=== PATIENT | male | born 1940 | race Caucasian/White ===

== ENCOUNTER → 2016-10-15 | Outpatient (CLI) | payer OTHER ==
[2015-07-17 13:08] VITALS: BP 128/89
[~2016-10-15] MED LIST: APIX5TAB PO; ASPI-482 PO; HYDR-965 PO; LOSA1TAB17 PO; METO25TA2 PO; OLME1TAB5 PO; OMEG500C3 PO; VITA10004 PO
--- NOTE | 2016-10-15 09:51 | KCIC ---
Bilateral lower extremity venous Doppler ultrasound History: Bilateral lower extremity edema. History of DVT 2014. Patient on blood thinner for atrial fibrillation. Comparison: None. Procedure: Color flow Doppler, Doppler spectral analysis, and 2D images are obtained with and without compression in the area of the common femoral vein, superficial femoral vein - femoral vein junction, main femoral vein (superficial femoral vein) and popliteal vein. Veins of the proximal calf are also imaged. Findings: There is minimal eccentric thrombus in the right popliteal vein. Color flow and augmentation are demonstrated. There is partial thrombus in the right posterior tibial vein. Peroneal veins are not seen bilaterally. There is normal color flow, augmentation, and compressibility of all other visualized vein segments. No evidence of deep venous thrombus is present. Right Green's cyst measures 3.6 x 1.5 x 3.5 cm. Left Green's cyst measures 3.6 x 1.5 x 3.3 cm. IMPRESSION: 1. Partially occlusive chronic appearing thrombus of the right popliteal and posterior tibial veins. 2. Peroneal veins are not identified bilaterally. 3. Bilateral Green's cysts. Electronically signed by: Terry Patel MD (10/15/2016 9:48 AM)
--- NOTE | 2016-10-15 10:38 | KCIC ---
VENOUS REFLUX BILATERAL Clinical Indication: Edema, foot pain. Comparison: None. TECHNIQUE: Real-time grayscale, color-flow, and Doppler spectral waveform analysis of the superficial veins of the lower extremities is performed with and without patient performing Valsalva maneuver. Findings: No reflux is demonstrated in the right or left greater saphenous veins. Diameter at the left saphenofemoral junction is 7 mm. Lesser saphenous vein diameter is 3 mm. Diameter at the right saphenofemoral junction is 6 mm. The right lesser saphenous vein diameter is 4 mm. No reflux is seen in the lesser saphenous veins. No calf perforators are demonstrated. IMPRESSION: No venous reflux is demonstrated. Electronically signed by: Terry Patel MD (10/15/2016 10:35 AM)
== END | disposition home or self-care (01) ==
LOC: KCIC US 07:42
PROVIDERS: ATTEND Family Medicine
DX: M79.672 Pain in left foot (principal); M79.671 Pain in right foot; R60.0 Localized edema
CPT/HCPCS: 93970

== ENCOUNTER → 2016-10-29 | Outpatient (CLI) | payer OTHER ==
[2015-07-17 13:08] VITALS: BP 128/89
[~2016-10-29] MED LIST changes: +OLME1TAB25 PO; -OLME1TAB5 PO; +VITA100022 PO; -VITA10004 PO
--- NOTE | 2016-10-29 09:15 | CARD ---
APPROVED REPORT EXAM: Two-dimensional and M-mode echocardiogram with Doppler and color Doppler. Other Information Quality : GoodHR: 67bpm Rhythm : NSR INDICATION Edema RISK FACTORS Hypertension 2D DIMENSIONS RVDd3.3 (2.9-3.5cm)Left Atrium(2D)3.4 (1.6-4.0cm) IVSd0.9 (0.7-1.1cm)Aortic Root(2D)3.2 (2.0-3.7cm) LVDd5.4 (3.9-5.9cm)LVOT Diameter2.2 (1.8-2.4cm) PWd0.9 (0.7-1.1cm)LVDs3.6 (2.5-4.0cm) FS (%) 33.3 %SV88.1 ml LVEF(%)61.5 (>50%) Aortic Valve AoV Peak Garrett.117.5cm/sAoV VTI20.6cm AO Peak GR.5.5mmHgLVOT Peak Garrett.85.1cm/s AO Mean GR.4mmHgAVA (VMAX)2.66cm2 Mitral Valve MV E Mjamezax71.2cm/sMV E Peak Gr.1mmHg MV DECEL DHBL520olVE A Fkvhrvol98.3cm/s MV E Mean Gr.0mmHgE/A Ratio1.1 MV A [id number] Pulmonary Valve PV Peak Hkbvrkap51.4cm/s Tricuspid Valve TR P. Gnlaaxeg159ux/sTR Peak Gr.26mmHg Pulmonary Vein S1 Ymyxzian74.9cm/sD2 Puqvccab61.5cm/s PVa dimkrlzp95aoav LEFT VENTRICLE The left ventricle is normal size. There is normal left ventricular wall thickness. The left ventricu lar systolic function is normal and the ejection fraction is within normal range. The Ejection Fracti on is 60-65%. There is normal LV segmental wall motion. RIGHT VENTRICLE The right ventricle is normal size. There is normal right ventricular wall thickness. The right ventr icular systolic function is normal. ATRIA The left atrium size is normal. The right atrium size is normal. The interatrial septum is intact wit h no evidence for an atrial septal defect or patent foramen ovale as noted on 2-D or Doppler imaging. AORTIC VALVE The aortic valve is mildly sclerotic. The aortic valve is trileaflet. Doppler and Color Flow revealed no significant aortic regurgitation. There is no significant aortic valvular stenosis. MITRAL VALVE The mitral valve leaflets are thickened. There is no evidence of mitral valve prolapse. There is no m itral valve stenosis. Doppler and Color Flow revealed mild mitral regurgitation. TRICUSPID VALVE Doppler and Color Flow revealed trace tricuspid regurgitation. The pulmonary artery systolic pressure is estimated at 29 mmHg. PULMONIC VALVE Doppler and Color Flow revealed no pulmonic valvular regurgitation. There is no pulmonic valvular jan nosis. GREAT VESSELS The aortic root is normal in size. The ascending aorta is normal in size. The pulmonary artery is nor mal. The IVC is normal in size and collapses >50% with inspiration. PERICARDIAL EFFUSION There is no evidence of significant pericardial effusion. Critical Notification Critical Value: No <Conclusion> The left ventricular systolic function is normal and the ejection fraction is within normal range. T he Ejection Fraction is 60-65%. There is normal LV segmental wall motion.
== END | disposition home or self-care (01) ==
LOC: ECHO 07:42
PROVIDERS: ATTEND Internal Medicine Cardiovascular Disease
DX: I08.1 Rheumatic disorders of both mitral and tricuspid valves (principal); R06.00 Dyspnea, unspecified
CPT/HCPCS: 93306

== ENCOUNTER 2021-01-17 11:48 | Inpatient (IN) | payer MEDICARE, OTHER ==
[~2021-01-17] VITALS: Ht 195.6 cm; Wt 105.9 kg
[~2021-01-17 11:48] MED LIST changes: +HYDR-3165 PO; -HYDR-965 PO; -LOSA1TAB17 PO; +LOSA1TAB22 PO
[2021-01-17] MEDS ORDERED: MULTIVIT INFUSN,ADULT 4,VIT K 10 ML, THIAMINE INJ 100 MG, FOLIC ACID INJ 1 MG in IV NOR... IV ONE (12:00)
--- NOTE | 2021-01-17 12:13 | RAD ---
EXAM: XR CHEST 1V 01/17/2021 12:01 PM CLINICAL INDICATION: Weakness COMPARISON: Chest radiograph 10/11/2014 TECHNIQUE: AP upright view of the chest FINDINGS: The heart and mediastinum are normal. Lungs are well-expanded. There is minimal atelectas is in the left lung base. There is a skinfold seen over the left hemithorax. No consolidation, pleura l effusion, or pneumothorax. Pulmonary vascularity is normal. No acute osseous abnormality. IMPRESSION: No acute cardiopulmonary abnormality. Electronically signed by: Desiree Zhou MD (01/17/2021 12:11 PM) [id number]
[2021-01-17] MEDS ORDERED: FAMOTIDINE 20 MG/2 ML VIAL IVP ONE (12:30)
[2021-01-17] MEDS ORDERED: ONDANSETRON PF 4 MG/2 ML VIAL. IVP ONE ×2 (12:30→15:00)
--- NOTE | 2021-01-17 12:30 | PHYS DOC ---
Past Medical History Past Medical History: A-Fib, Hypertension Past Surgical History: No Surgical History Smoking Status: Never Smoker Alcohol Use: Heavy Additional Information: 3x "scotch on rocks" nightly Drug Use: None General Adult EDM: Chief Complaint: NAUSEA/VOMITING/DIARRHEA HPI: HPI: Patient is a 80-year-old male presents via EMS with 2-week history of progressive weakness primarily to his lower extremities. Reports now with nausea and vomiting today. Patient reports he has difficulty moving at this point. Reports he has fallen. Denies head trauma or neck pain. Denies fever or chills. Denies cough. Denies known exposure to COVID-19. Denies known sick contacts. Patient reports receiving vaccinations x2 in August 2020. Patient is unsure whether it is Pfizer or Moderna. Patient reports use of blood thinners. Patient does report drinking 3 scotches nightly. Patient reports he has not been eating recently. Review of Systems: Review of Systems: Constitutional: Denies fever or chills; reports malaise Eyes: Denies redness or eye pain HENT: Denies nasal congestion or sore throat Respiratory: Denies cough or shortness of breath Cardiovascular: Denies chest pain or palpitations GI: Denies abdominal pain; reports nausea and vomiting : Denies dysuria or hematuria Musculoskeletal: Denies back pain or joint pain Integument: Denies rash or skin lesions Neurologic: Denies headache; reports generalized weakness and decreased sensation on left leg Complete systems were reviewed and found to be within normal limits, except as documented in this note. Heart Score: C/O Chest Pain: N/A Current Medications: Current Medications Medications (Trade) Dose Ordered Sig/[facility] Start Time Stop Time Status Last Admin Dose Admin Famotidine (Pepcid Vial) 20 mg 1X ONCE 01/17/21 12:30 01/17/21 12:31 01/17/21 12:27 20 MG Multivitamins 10 ml/Thiamine HCl 100 mg/Folic Acid 1 mg/Sodium Chloride 1,011.2 ml @ 1,000.088 mls/hr 1X ONCE 01/17/21 12:00 01/17/21 13:00 01/17/21 12:27 1,000.088 MLS/HR Ondansetron HCl (Zofran) 4 mg 1X ONCE 01/17/21 12:30 01/17/21 12:31 01/17/21 12:27 4 MG Allergies: Allergies: Allergies Coded Allergies Type Severity Reaction Last Updated Verified No Known Drug Allergies 07/17/15 No Physical Exam: PE: Constitutional: Well developed, well nourished, no acute distress, non-toxic appearance HENT: Normocephalic, atraumatic Eyes: PERRL, EOMI, conjunctiva normal, no discharge, no nystagmus Neck: Normal range of motion, no tenderness, supple Lungs & Thorax: No respiratory distress, equal chest rise and fall Abdomen: Soft, no tenderness, no guarding/rebound tenderness/distention Skin: Warm, dry, no erythema, bilateral lower extremities with chronic venous stasis Extremities: No tenderness, ROM intact, 2+ bilateral lower extremity edema Neurologic: Alert and oriented X 3, bilateral lower extremities strength +4, patient reports decreased sensation on distal left leg in comparison to right Psychologic: Affect normal, judgment normal EKG: EKG: @1303 Sinus arrhythmia with baseline artifaact noted, low limb lead voltage, NO ST elevation, QRS 96ms, QT/QTc 368/460ms Radiology/Procedures: Radiology/Procedures: PROCEDURE: PORTABLE CHEST 1V EXAM: XR CHEST 1V 01/17/2021 12:01 PM CLINICAL INDICATION: Weakness COMPARISON: Chest radiograph 10/11/2014 TECHNIQUE: AP upright view of the chest FINDINGS: The heart and mediastinum are normal. Lungs are well-expanded. There is minimal atelectasis in the left lung base. There is a skinfold seen over the left hemithorax. No consolidation, pleural effusion, or pneumothorax. Pulmonary vascularity is normal. No acute osseous abnormality. IMPRESSION: No acute cardiopulmonary abnormality. Electronically signed by: Desiree Zhou MD (01/17/2021 12:11 PM) [id number] PROCEDURE: CT HEAD WO CONTRAST CT Head without contrast 01/17/2021 12:04 PM Indication: Reason: weakness / Spl. Instructions: / History: Comparison: None available Findings: No intracranial hemorrhage is seen. No evidence of acute territorial infarct is seen. Note that CT is limited in sensitivity for acute ischemia. MRI offers more sensitive evaluation. Age-related atrophic changes are noted. There is prominent patchy periventricular and deep white matter hypoattenuation which is nonspecific, but most commonly relates to chronic small vessel disease. No abnormal extra axial fluid collection is identified. No mass effect or midline shift is seen. No acute osseous abnormalities are seen. Impression: 1. No acute intracranial process identified 2. Age-related atrophy, and evidence of chronic small vessel disease as described CT DOSING PQRS STATEMENT: One or more of the following individualized dose reduction techniques were utilized for this examination: 1. Automated exposure control 2. Adjustment of the mA and/or kV according to patient size 3. Use of iterative reconstruction technique Electronically signed by: Topher Anglin MD (01/17/2021 12:57 PM) [id number] Course & Med Decision Making: Course & Med Decision Making Pertinent Labs and Imaging studies reviewed. (See chart for details) Patient presents with report of generalized weakness primarily to his lower e xtremities. Patient also noted to have decreased sensation in left leg in comparison to right. Patient denies known history of CVA however he reports his spouse thinks he might have had a stroke in the past. Patient does report recent fall. Patient is on blood thinners. Patient otherwise neurologically intact. NIHSS 3 secondary to bilateral lower extremity weakness as well as sensation difference. CT head without acute process. Labs obtained and posted to chart. Leukocytosis appreciated. Lactic acid obtained and significantly elevated. Chest x-ray clear. Concern for possible urinary tract infection however patient unable to provide urine sample at this time. Given septic shock criteria being met empiric antibiotics and IV fluid hydration provided. Other labs reviewed and noted patient to be hypoglycemic. D10 provided and patient allowed to eat. Hypokalemia and hypomagnesemia addressed. Patient requiring admission for further evaluation and treatment. Discussed with Dr. Lopez (hospitalist) who is in agreement with admission. Discussed findings and plan with patient, who acknowledges understanding and agreement. Robin Disclaimer: Robin Disclaimer: This electronic medical record was generated, in whole or in part, using a voice recognition dictation system. Departure Departure Impression: Primary Impression: Septic shock Additional Impressions: Generalized weakness Hypoglycemia Hypomagnesemia Hypokalemia Disposition: ADMITTED INPATIENT Admitting Physician: MISBAH (John) Condition: GUARDED Referrals: JEOVANNY MINOR MD (PCP) NIHSS Stroke Scale NIH Stroke Scale: NIH Stroke Scale Response (Comments) Value Level of Consciousness: 0 Alert/Responsive 0 LOC Questions: 0 Answers both correctly 0 LOC Commands: 0 Performs both tasks 0 Best Gaze: 0 Normal 0 Visual: 0 No visual loss 0 Facial Palsy: 0 Normal, symmetrical 0 Motor - Left Arm 0 No drift 0 Motor - Right Arm 0 No drift 0 Motor - Left Leg 1 Drift but can hold 1 Motor: Right Leg 1 Drift but can hold 1 Limb Ataxia: 0 Absent 0 Sensory: 1 Mid to moderate loss 1 Best Language: 0 Normal 0 Dysathria: 0 Normal 0 Extinction and Inattention: 0 Normal 0 Total 3 Date and Time of Reassessment Date: Jan 17, 2021 Time: 14:23 Fluid Challenge Is the fluid challenge complet: No IBW Target Volume Used: Yes BMI > 30: Yes Vital Signs Vital Signs: Vital Signs Date Time Temp Pulse Resp B/P (MAP) Pulse Ox O2 Delivery O2 Flow Rate FiO2 01/17/21 11:48 97.2 100 22 123/82 (96) 98 Room Air 97.2 Temperature Source: Oral Respirations Respiratory Effort: Normal Respiratory Pattern: Normal Cardiovascular Pulse Rhythm: Irregular Heart: S1 and S2 normal Lung Sounds Breath Sounds: Coarse Capillary Refil Capillary Refill: Rt Hand < 3 seconds Peripheral Pulse Pulse Location: Radial Pulse Strength: Normal (2+) Pulse Assessment Method: Palpation Integumentary Skin: Warm, Dry Skin Moisture: Dry Skin Turgor: Normal Skin Color: warm, dry Fingernail Color: WNL Critical Care Time Critical care time was 30 minutes which includes time at bedside, spent in discussion of patient's care with specialists and/or family members, with interpretation of laboratory and/or radiological studies and is exclusive of procedures. ASHOK ANGUIANO DO Jan 17, 2021 12:30
--- NOTE | 2021-01-17 12:59 | RAD ---
CT Head without contrast 01/17/2021 12:04 PM Indication: Reason: weakness / Spl. Instructions: / History: Comparison: None available Findings: No intracranial hemorrhage is seen. No evidence of acute territorial infarct is seen. Note that CT is limited in sensitivity for acute ischemia. MRI offers more sensitive evaluation. Age-relat ed atrophic changes are noted. There is prominent patchy periventricular and deep white matter hypoa ttenuation which is nonspecific, but most commonly relates to chronic small vessel disease. No abnor mal extra axial fluid collection is identified. No mass effect or midline shift is seen. No acute os seous abnormalities are seen. Impression: 1. No acute intracranial process identified 2. Age-related atrophy, and evidence of chronic small vessel disease as described CT DOSING PQRS STATEMENT: One or more of the following individualized dose reduction techniques were utilized for this examinat ion: 1. Automated exposure control 2. Adjustment of the mA and/or kV according to patient size 3. Use of iterative reconstruction technique Electronically signed by: Topher Anglin MD (01/17/2021 12:57 PM) [id number]
[2021-01-17 13:14] LABS: BASO # 0.1 x10^3/uL (0.0-0.2); BASO % 0 % (0-3); EOS % 0 % (0-3); HEMATOCRIT 35.9 % (39.0-53.0); HEMOGLOBIN 12.2 g/dL (13.0-17.5); LYMPH # 0.7 x10^3/uL (1.0-4.8); LYMPH % 4 % (24-48); MEAN CORPUSCULAR HEMOGLOBIN 38 pg (25-35); MEAN CORPUSCULAR HGB CONC 34 g/dL (31-37); MEAN CORPUSCULAR VOLUME 112 fL (79-100); MONO % 6 % (0-9); NEUT # 17.2 x10^3/uL (1.8-7.7); NEUT % 90 % (31-73); PLATELET COUNT 243 x10^3/uL (140-400); RED BLOOD COUNT 3.21 x10^6/uL (4.30-5.70); RED CELL DISTRIBUTION WIDTH 15.2 % (11.5-14.5)
[2021-01-17 13:48] LABS: GFR 72.3; POTASSIUM 3.3 mmol/L (3.5-5.1)
[2021-01-17 13:56] LABS: ALBUMIN 2.8 g/dL (3.4-5.0); ALBUMIN/GLOBULIN RATIO 0.7 (1.0-1.7); MAGNESIUM 1.5 mg/dL (1.8-2.4); TOTAL BILIRUBIN 1.1 mg/dL (0.2-1.0); TOTAL PROTEIN 6.6 g/dL (6.4-8.2)
[2021-01-17 14:14] LABS: % BANDS 7 % (0-9); % LYMPHS 4 % (24-48); % MONOS 3 % (0-10); % SEGS 86 % (35-66); ANISOCYTOSIS SLIGHT; PLT ESTIMATE ADEQUATE (ADEQUATE)
[2021-01-17 14:15] LABS: OVALOCYTES FEW
[2021-01-17] MEDS ORDERED: IV NORMAL SALINE 1000ML BAG 1,000 ML IV ONE (14:15)
[2021-01-17] MEDS ORDERED: IV NORMAL SALINE 500ML BAG 500 ML IV ONE (14:15)
[2021-01-17] MEDS ORDERED: IV DEXTROSE 10% 500 ML IV ONE (14:15)
[2021-01-17] MEDS ORDERED: DEXTROSE 50% 25 GM / 50ML DISP.SYRIN. IV ONE (14:30)
[2021-01-17] MEDS ORDERED: MAGNESIUM SULFATE 2GM 50 ML IV ONE (14:30)
[2021-01-17] MEDS ORDERED: ACETAMINOPHEN 325 MG TABLET. PO PRN (14:30)
[2021-01-17] MEDS ORDERED: POTASSIUM CHLORIDE 20 MEQ TABLET.ER. PO ONE (14:30)
[2021-01-17] MEDS ORDERED: cefTRIAXone IV Push 1 GM VIAL. IVP ONE (14:30)
[2021-01-17] MEDS ORDERED: ONDANSETRON PF 4 MG/2 ML VIAL. IVP PRN (14:30)
--- NOTE | 2021-01-17 15:10 | PDOC1 ---
History and Physical Date of Service: DOS: DATE: 01/17/21 TIME: 15:10 Chief Complaint: Problems: (1) Generalized weakness (2) Hypomagnesemia (3) Hypokalemia (4) Hypoglycemia (5) Septic shock Chief Complain: Nausea vomiting, lower extremity weakness History of Present Illness: HPI: Patient 80-year-old male who presented to the hospital today due to 2-week history of bilateral lower extremity weakness and nausea and vomiting. Patient reports he has had progressive weakness in his lower extremities to the point where he is unable to even stand up now. Feels very weak all over. Cannot recall any episodes like this before. He also has developed in the past week nausea and vomiting with meals. Decreased p.o. intake because of this. In the emergency room patient met SIRS criteria particularly due to lactate of 5. Patient does not know of any Covid contacts he knows of, he does have his Covid vaccines. Infectious work-up unremarkable thus far however patient has not been able to provide a urine sample thus suspect is a UTI. Denies hematuria and dysuria. Says that for the past few weeks when he has to urinate in the middle of the night he is too weak to get up to get to the bathroom so he just pees himself. Patient is a pretty heavy alcoholic, 3-4 scotches a night. When seen patient was denying headache, vision changes, chest pain, dysuria. Of note patient reports that about 1 year ago he had an episode of MS-like symptoms that are somewhat similar to this. Says they went away on their own thus he never pursued any sort of work-up. Past Medical/Surgical History: PMH/PSH: Hypertension, A. fib Allergies: Allergies: Coded Allergies: No Known Drug Allergies (Unverified , 07/17/15) Family History: Family History: No known Social History: Social History: 3-4 scotches a night, denies tobacco drug use Current Medications: Current Medications Current Medications Famotidine (Pepcid Vial) 20 mg 1X ONCE IVP Last administered on 01/17/21at 12:27; Start 01/17/21 at 12:30; Stop 01/17/21 at 12:31; Status DC Ondansetron HCl (Zofran) 4 mg 1X ONCE IVP Last administered on 01/17/21at 12:27; Start 01/17/21 at 12:30; Stop 01/17/21 at 12:31; Status DC Multivitamins 10 ml/Thiamine HCl 100 mg/Folic Acid 1 mg/Sodium Chloride 1,011.2 ml @ 1,000.088 mls/hr 1X ONCE IV Last administered on 01/17/21at 12:27; Start 01/17/21 at 12:00; Stop 01/17/21 at 13:00; Status DC Ceftriaxone Sodium (Rocephin) 1 gm 1X ONCE IVP Last administered on 01/17/21at 14:35; Start 01/17/21 at 14:30; Stop 01/17/21 at 14:31; Status DC Dextrose (Dextrose 50%-Water Syringe) 25 gm 1X ONCE IV ; Start 01/17/21 at 14:30; Stop 01/17/21 at 14:11; Status DC Potassium Chloride (Klor-Con) 40 meq 1X ONCE PO Last administered on 01/17/21at 14:36; Start 01/17/21 at 14:30; Stop 01/17/21 at 14:31; Status DC Magnesium Sulfate 50 ml @ 25 mls/hr 1X ONCE IV Last administered on 01/17/21at 14:35; Start 01/17/21 at 14:30; Stop 01/17/21 at 16:29 Multivitamins 10 ml/Thiamine HCl 100 mg/Folic Acid 1 mg/Sodium Chloride 1,011.2 ml @ 100 mls/ hr DAILY IV ; Start 01/18/21 at 09:00; Stop 01/21/21 at 19:07 Multivitamins (Thera M Plus) 1 tab DAILY PO ; Start 01/22/21 at 09:00 Thiamine Mononitrate (Vitamin B-1) 100 mg DAILY PO ; Start 01/22/21 at 09:00 Lorazepam (Ativan) 4 mg PRN Q1HR PRN PO For CIWA 8-14; Start 01/17/21 at 14:15 Lorazepam (Ativan) 8 mg PRN Q1HR PRN PO For CIWA 15 or greater; Start 01/17/21 at 14:15 Dextrose 500 ml @ 0 mls/hr 1X ONCE IV ; Start 01/17/21 at 14:15; Stop 01/17/21 at 14:43; Status DC Aspirin (Ecotrin) 81 mg DAILY PO ; Start 01/17/21 at 15:00 Metoprolol Succinate (Toprol Xl) 12.5 mg DAILY PO ; Start 01/17/21 at 15:00 Losartan Potassium (Cozaar) 100 mg DAILY PO ; Start 01/17/21 at 15:00 Sodium Chloride 1,000 ml @ 1,000 mls/hr 1X ONCE IV Last administered on 1at 14:35; Start 01/17/21 at 14:15; Stop 01/17/21 at 15:14 Sodium Chloride 500 ml @ 500 mls/hr 1X ONCE IV Last administered on 01/17/21at 14:34; Start 01/17/21 at 14:15; Stop 01/17/21 at 15:14 Ondansetron HCl (Zofran) 4 mg PRN Q8HRS PRN IVP NAUSEA/VOMITING; Start 01/17/21 at 14:30; Stop 01/18/21 at 14:29 Acetaminophen (Tylenol) 650 mg PRN Q4HRS PRN PO FEVER > 100.3'F; Start 01/17/21 at 14:30; Stop 01/18/21 at 14:29 Apixaban (Eliquis) 5 mg BID PO ; Start 01/17/21 at 21:00 Hydrochlorothiazide (Hydrodiuril) 25 mg DAILY PO ; Start 01/17/21 at 15:00 Info (Anti-Coagulation Monitoring By Pharmacy) 1 each PRN DAILY PRN MC PER PROTOCOL; Start 01/17/21 at 15:00 Ondansetron HCl (Zofran) 4 mg 1X ONCE IVP ; Start 01/17/21 at 15:00; Stop 01/17/21 at 15:04; Status DC Active Scripts Active Reported Losartan-Hctz 100-25 Mg Tab (Losartan/Hydrochlorothiazide) 1 Each Tablet 1 Each PO DAILY Toprol Xl (Metoprolol Succinate) 25 Mg Tab.er.24h 12.5 Mg PO DAILY Eliquis (Apixaban) 5 Mg Tablet 5 Mg PO BID Aspir 81 (Aspirin) 81 Mg Tablet.dr 1 Tab PO DAILY Vitamin E (Vitamin E Acetate) 1,000 Unit Capsule 1 Tab PO Fish Oil (Matthews-3 Fatty Acids) 500 Mg Capsule 500 Mg PO DAILY ROS: Review of Systems Review of System Negative unless noted in HPI Physical Exam: Vital Signs: Vital Signs Date Time Temp Pulse Resp B/P (MAP) Pulse Ox O2 Delivery O2 Flow Rate FiO2 01/17/21 14:26 93 18 166/95 (118) 100 Room Air 01/17/21 11:48 97.2 97.2 Physcial Exam: GEN: Patient very lethargic, very weak, HEENT: Normal cephalic, atraumatic, external auditory canals are patent EYES: Extraocular muscles are intact, pupil are equally round and reactive to light and accommodation MUSCULOSKELETAL: Range of motion limited by weakness NECK: Supple, no JVD, no thyromegaly was noted LUNGS: Clear to auscultation in all lung [place] without rhonchi or wheezing HEART: Irregularly irregular; peripheral pulses normal ABDOMEN: Diffusely tender throughout EXTREMITIES: Bilateral lower extremities appear very unkempt especially his feet. No history of diabetes. NEUROLOGIC: Normal speech and tone. A&O x 3, moves all extremities, no obvious focal deficits PSYCHIATRIC: Lethargic SKIN: No ulcerations or rashes, good skin turgor, no jaundice VASCULAR: Good capillary refill, neurovascular bundle appears to be intact Labs: Labs: Laboratory Tests Test 01/17/21 12:05 01/17/21 12:28 01/17/21 13:02 SARS-CoV-2 Antigen (Rapid) Negative (NEGATIVE) Prothrombin Time 15.0 SEC (11.7-14.0) Prothromb Time International Ratio 1.2 (0.8-1.1) Activated Partial Thromboplast Time 27 SEC (24-38) White Blood Count 19.0 x10^3/uL (4.0-11.0) Red Blood Count 3.21 x10^6/uL (4.30-5.70) Hemoglobin 12.2 g/dL (13.0-17.5) Hematocrit 35.9 % (39.0-53.0) Mean Corpuscular Volume 112 fL (79-100) Mean Corpuscular Hemoglobin 38 pg (25-35) Mean Corpuscular Hemoglobin Concent 34 g/dL (31-37) Red Cell Distribution Width 15.2 % (11.5-14.5) Platelet Count 243 x10^3/uL (140-400) Neutrophils (%) (Auto) 90 % (31-73) Lymphocytes (%) (Auto) 4 % (24-48) Monocytes (%) (Auto) 6 % (0-9) Eosinophils (%) (Auto) 0 % (0-3) Basophils (%) (Auto) 0 % (0-3) Neutrophils # (Auto) 17.2 x10^3/uL (1.8-7.7) Lymphocytes # (Auto) 0.7 x10^3/uL (1.0-4.8) Monocytes # (Auto) 1.0 x10^3/uL (0.0-1.1) Eosinophils # (Auto) 0.0 x10^3/uL (0.0-0.7) Basophils # (Auto) 0.1 x10^3/uL (0.0-0.2) Segmented Neutrophils % 86 % (35-66) Band Neutrophils % 7 % (0-9) Lymphocytes % 4 % (24-48) Monocytes % 3 % (0-10) Platelet Estimate Adequate (ADEQUATE) Anisocytosis Slight Macrocytosis Mod Ovalocytes Few Sodium Level 138 mmol/L (136-145) Potassium Level 3.3 mmol/L (3.5-5.1) Chloride Level 97 mmol/L (98-107) Carbon Dioxide Level 13 mmol/L (21-32) Anion Gap 28 (6-14) Blood Urea Nitrogen 20 mg/dL (8-26) Creatinine 1.0 mg/dL (0.7-1.3) Estimated GFR (Cockcroft-Gault) 72.3 BUN/Creatinine Ratio 20 (6-20) Glucose Level 64 mg/dL (70-99) Lactic Acid Level 5.7 mmol/L (0.4-2.0) Calcium Level 8.0 mg/dL (8.5-10.1) Magnesium Level 1.5 mg/dL (1.8-2.4) Total Bilirubin 1.1 mg/dL (0.2-1.0) Aspartate Amino Transf (AST/SGOT) 72 U/L (15-37) Alanine Aminotransferase (ALT/SGPT) 44 U/L (16-63) Alkaline Phosphatase 76 U/L (46-116) Ammonia < 10 mcmol/L (11-34) Creatine Kinase 616 U/L (39-308) Creatine Kinase MB (Mass) 9.9 ng/mL (0.0-3.6) Creatine Kinase MB Relative Index 1.6 % (0-4) Troponin I Quantitative < 0.017 ng/mL (0.000-0.055) UE-[id number]-[id number]-Type Natriuretic Peptide 1952 pg/mL (0-449) Total Protein 6.6 g/dL (6.4-8.2) Albumin 2.8 g/dL (3.4-5.0) Albumin/Globulin Ratio 0.7 (1.0-1.7) Ethyl Alcohol Level 40 mg/dL (0-10) Laboratory Tests Test 01/17/21 12:05 01/17/21 12:28 01/17/21 13:02 SARS-CoV-2 Antigen (Rapid) Negative (NEGATIVE) Prothrombin Time 15.0 SEC (11.7-14.0) Prothromb Time International Ratio 1.2 (0.8-1.1) Activated Partial Thromboplast Time 27 SEC (24-38) White Blood Count 19.0 x10^3/uL (4.0-11.0) Red Blood Count 3.21 x10^6/uL (4.30-5.70) Hemoglobin 12.2 g/dL (13.0-17.5) Hematocrit 35.9 % (39.0-53.0) Mean Corpuscular Volume 112 fL (79-100) Mean Corpuscular Hemoglobin 38 pg (25-35) Mean Corpuscular Hemoglobin Concent 34 g/dL (31-37) Red Cell Distribution Width 15.2 % (11.5-14.5) Platelet Count 243 x10^3/uL (140-400) Neutrophils (%) (Auto) 90 % (31-73) Lymphocytes (%) (Auto) 4 % (24-48) Monocytes (%) (Auto) 6 % (0-9) Eosinophils (%) (Auto) 0 % (0-3) Basophils (%) (Auto) 0 % (0-3) Neutrophils # (Auto) 17.2 x10^3/uL (1.8-7.7) Lymphocytes # (Auto) 0.7 x10^3/uL (1.0-4.8) Monocytes # (Auto) 1.0 x10^3/uL (0.0-1.1) Eosinophils # (Auto) 0.0 x10^3/uL (0.0-0.7) Basophils # (Auto) 0.1 x10^3/uL (0.0-0.2) Segmented Neutrophils % 86 % (35-66) Band Neutrophils % 7 % (0-9) Lymphocytes % 4 % (24-48) Monocytes % 3 % (0-10) Platelet Estimate Adequate (ADEQUATE) Anisocytosis Slight Macrocytosis Mod Ovalocytes Few Sodium Level 138 mmol/L (136-145) Potassium Level 3.3 mmol/L (3.5-5.1) Chloride Level 97 mmol/L (98-107) Carbon Dioxide Level 13 mmol/L (21-32) Anion Gap 28 (6-14) Blood Urea Nitrogen 20 mg/dL (8-26) Creatinine 1.0 mg/dL (0.7-1.3) Estimated GFR (Cockcroft-Gault) 72.3 BUN/Creatinine Ratio 20 (6-20) Glucose Level 64 mg/dL (70-99) Lactic Acid Level 5.7 mmol/L (0.4-2.0) Calcium Level 8.0 mg/dL (8.5-10.1) Magnesium Level 1.5 mg/dL (1.8-2.4) Total Bilirubin 1.1 mg/dL (0.2-1.0) Aspartate Amino Transf (AST/SGOT) 72 U/L (15-37) Alanine Aminotransferase (ALT/SGPT) 44 U/L (16-63) Alkaline Phosphatase 76 U/L (46-116) Ammonia < 10 mcmol/L (11-34) Creatine Kinase 616 U/L (39-308) Creatine Kinase MB (Mass) 9.9 ng/mL (0.0-3.6) Creatine Kinase MB Relative Index 1.6 % (0-4) Troponin I Quantitative < 0.017 ng/mL (0.000-0.055) NP-Wmm-F-Type Natriuretic Peptide 1952 pg/mL (0-449) Total Protein 6.6 g/dL (6.4-8.2) Albumin 2.8 g/dL (3.4-5.0) Albumin/Globulin Ratio 0.7 (1.0-1.7) Ethyl Alcohol Level 40 mg/dL (0-10) Assessment/Plan Assessment/Plan Generalized weakness, failure to thrive, suspected UTI, septic shock, hyper tension, A. fib, macrocytic anemia -2-week history worsening lower extremity weakness. Decreased p.o. intake as well. -Denies any inciting events - emergency room patient was provided fluids and electrolyte replacement; also found to have a leukocytosis, afebrile -CT head and C-spine unremarkable; chest x-ray unremarkable -Lactate of 5 -Given a dose of Rocephin in the emergency room, will continue this for now until patient can provide urine sample -Continue aggressive hydration as suspect dehydration is a large contributing factor to patient's presentation -Nutrition consult -PT OT ordered -CIWA protocol ordered -We will check B12 and folate due to macrocytic anemia; will also give empiric doses of each -Home Eliquis will serve as DVT prophylaxis -Resumed as indicated -Diet as tolerated Justifications for Admission Other Justification SHANNAN MACHADO MD Jan 17, 2021 15:10
[2021-01-17 16:20] VITALS: BP 148/77
[2021-01-17 18:02] LABS: BILIRUBIN,URINE SMALL (NEG); CLARITY,URINE CLOUDY; COLOR,URINE AMBER; NITRITE,URINE NEGATIVE (NEG); PROTEIN,URINE 30 mg/dL (NEG-TRACE)
[2021-01-17 18:07] LABS: BACTERIA,URINE 0 /HPF (0-FEW); HYALINE CASTS, URINE OCCASIONAL /HPF; WBC,URINE OCC /HPF (0-4)
[2021-01-17] MEDS: IV NORMAL SALINE 1000ML BAG 1,000 ML IV SCH (18:15)
[2021-01-17 18:18] VITALS: BP 151/71
[2021-01-17] MEDS: NYSTATIN TOPICAL POWDER 15GM BOTTLE. TP SCH (20:17)
[2021-01-17] MEDS: ZOLPIDEM 5 MG TABLET. PO PRN (20:17)
[2021-01-17] MEDS: hydroCHLOROthiazide 25 MG TABLET PO SCH (20:18)
[2021-01-17] MEDS: ASPIRIN ENTERIC COATED 81 MG TABLET.DR. PO SCH (20:18)
[2021-01-17] MEDS: VITAMIN B12,B9,B6 COMPLEX 1 TABLET. PO SCH (20:18)
[2021-01-17] MEDS: APIXABAN 5 MG TABLET. PO SCH (20:18)
[2021-01-17] MEDS: METOPROLOL SUCC 24HR ER 25 MG TAB.ER.24H. PO SCH (20:19)
[2021-01-17] MEDS: LOSARTAN POTASSIUM 50 MG TABLET. PO SCH (20:19)
--- NOTE | 2021-01-17 20:38 | RAD ---
US DPLX VENOUS EXTREMITY LOWER RT History: Reason: swelling / Spl. Instructions: / History: Comparison: None. Technique: Multiple longitudinal and transverse high resolution real-time images of the venous system of right lower extremity were obtained with color and Doppler sampling. Findings: The common femoral, superficial femoral, popliteal and proximal calf veins are all patent and demonst rate normal flow and compressibility. Normal respiratory phasicity and augmentation is present. Impression: 1. No evidence of deep vein thrombosis. Electronically signed by: Milton Leone DO (01/17/2021 8:36 PM) [facility]
[2021-01-17 23:00] VITALS: BP 122/59
[2021-01-18 03:00] VITALS: BP 133/70
[2021-01-18] MEDS: IV NORMAL SALINE 1000ML BAG 1,000 ML IV SCH ×3 (03:20→21:13)
[2021-01-18 07:00] VITALS: BP 104/63
[2021-01-18] MEDS ORDERED: IV NORMAL SALINE 1000ML BAG 1,000 ML IV ONE (08:30)
[2021-01-18] MEDS: VITAMIN B12,B9,B6 COMPLEX 1 TABLET. PO SCH (08:32)
[2021-01-18] MEDS: APIXABAN 5 MG TABLET. PO SCH ×2 (08:32→21:13)
[2021-01-18] MEDS: ASPIRIN ENTERIC COATED 81 MG TABLET.DR. PO SCH (08:32)
[2021-01-18] MEDS ORDERED: MULTIVIT INFUSN,ADULT 4,VIT K 10 ML, THIAMINE INJ 100 MG, FOLIC ACID INJ 1 MG in IV NOR... IV SCH (09:00)
[2021-01-18] MEDS: NYSTATIN TOPICAL POWDER 15GM BOTTLE. TP SCH ×2 (09:00→21:13)
[2021-01-18] MEDS: LOSARTAN POTASSIUM 50 MG TABLET. PO SCH (09:00)
[2021-01-18] MEDS: hydroCHLOROthiazide 25 MG TABLET PO SCH (09:00)
[2021-01-18] MEDS: METOPROLOL SUCC 24HR ER 25 MG TAB.ER.24H. PO SCH (09:00)
--- NOTE | 2021-01-18 09:35 | NUR ---
PATIENT DROWSY BUT EASILY AROUSED, ASSISTED WITH BREAKFAST, APPROX. 80% CONSUMED, AM METOPROLOL, LOSARTAN AND HYDROCHLOROTHIAZIDE HELD THIS AM D/T B/P 104/63, 75., DR. MACHADO ON THE UNIT AND INFORMED, WILL RECHECK VITALS AT NOON.
[2021-01-18 11:00] VITALS: BP 102/53
--- NOTE | 2021-01-18 11:29 | PDOC ---
[employer] PROGRESS NOTE Date of Service DOS: DATE: 01/18/21 TIME: 11:26 Chief Complaint Chief Complaint Weakness History of Present Illness History of Present Illness Patient 80-year-old male who presented to the hospital today due to 2-week history of bilateral lower extremity weakness and nausea and vomiting. Patient reports he has had progressive weakness in his lower extremities to the point where he is unable to even stand up now. Feels very weak all over. Cannot recall any episodes like this before. He also has developed in the past week nausea and vomiting with meals. Decreased p.o. intake because of this. In the emergency room patient met SIRS criteria particularly due to lactate of 5. Patient does not know of any Covid contacts he knows of, he does have his Covid vaccines. Infectious work-up unremarkable thus far however patient has not been able to provide a urine sample thus suspect is a UTI. Denies hematuria and dysuria. Says that for the past few weeks when he has to urinate in the middle of the night he is too weak to get up to get to the bathroom so he just pees himself. Patient is a pretty heavy alcoholic, 3-4 scotches a night. When seen patient was denying headache, vision changes, chest pain, dysuria. Of note patient reports that about 1 year ago he had an episode of MS-like symptoms that are somewhat similar to this. Says they went away on their own thus he never pursued any sort of work-up. 01/18 Evaluated at bedside. No major clinical changes. Continuing current plan, work with PT OT. Continue hydration, continue antibiotics. Vitals/I&O Vitals/I&O: Vital Signs Date Time Temp Pulse Resp B/P (MAP) Pulse Ox O2 Delivery O2 Flow Rate FiO2 01/18/21 11:00 98.0 67 18 102/53 (69) 99 Room Air 98.0 I & O 01/17/21 01/17/21 01/18/21 15:00 23:00 07:00 Intake Total 300 ml 120 ml Output Total 1100 ml Balance -800 ml 120 ml Physical Exam General: Alert, Oriented X3, Cooperative Heart: Regular rate, Normal S1, Normal S2 Lungs: Clear, Wheezing Abdomen: Normal bowel sounds, Soft, No tenderness Extremities: Other (lower extremity edema) Skin: No rashes, No significant lesion Labs Labs: Laboratory Tests Test 01/17/21 12:05 01/17/21 12:28 01/17/21 13:02 01/17/21 16:00 SARS-CoV-2 RNA (LANDRY) Negative (Negative) SARS-CoV-2 Antigen (Rapid) Negative (NEGATIVE) Prothrombin Time 15.0 SEC (11.7-14.0) Prothromb Time International Ratio 1.2 (0.8-1.1) Activated Partial Thromboplast Time 27 SEC (24-38) White Blood Count 19.0 x10^3/uL (4.0-11.0) Red Blood Count 3.21 x10^6/uL (4.30-5.70) Hemoglobin 12.2 g/dL (13.0-17.5) Hematocrit 35.9 % (39.0-53.0) Mean Corpuscular Volume 112 fL (79-100) Mean Corpuscular Hemoglobin 38 pg (25-35) Mean Corpuscular Hemoglobin Concent 34 g/dL (31-37) Red Cell Distribution Width 15.2 % (11.5-14.5) Platelet Count 243 x10^3/uL (140-400) Neutrophils (%) (Auto) 90 % (31-73) Lymphocytes (%) (Auto) 4 % (24-48) Monocytes (%) (Auto) 6 % (0-9) Eosinophils (%) (Auto) 0 % (0-3) Basophils (%) (Auto) 0 % (0-3) Neutrophils # (Auto) 17.2 x10^3/uL (1.8-7.7) Lymphocytes # (Auto) 0.7 x10^3/uL (1.0-4.8) Monocytes # (Auto) 1.0 x10^3/uL (0.0-1.1) Eosinophils # (Auto) 0.0 x10^3/uL (0.0-0.7) Basophils # (Auto) 0.1 x10^3/uL (0.0-0.2) Segmented Neutrophils % 86 % (35-66) Band Neutrophils % 7 % (0-9) Lymphocytes % 4 % (24-48) Monocytes % 3 % (0-10) Platelet Estimate Adequate (ADEQUATE) Anisocytosis Slight Macrocytosis Mod Ovalocytes Few Sodium Level 138 mmol/L (136-145) Potassium Level 3.3 mmol/L (3.5-5.1) Chloride Level 97 mmol/L (98-107) Carbon Dioxide Level 13 mmol/L (21-32) Anion Gap 28 (6-14) Blood Urea Nitrogen 20 mg/dL (8-26) Creatinine 1.0 mg/dL (0.7-1.3) Estimated GFR (Cockcroft-Gault) 72.3 BUN/Creatinine Ratio 20 (6-20) Glucose Level 64 mg/dL (70-99) Lactic Acid Level 5.7 mmol/L (0.4-2.0) Calcium Level 8.0 mg/dL (8.5-10.1) Magnesium Level 1.5 mg/dL (1.8-2.4) Total Bilirubin 1.1 mg/dL (0.2-1.0) Aspartate Amino Transf (AST/SGOT) 72 U/L (15-37) Alanine Aminotransferase (ALT/SGPT) 44 U/L (16-63) Alkaline Phosphatase 76 U/L (46-116) Ammonia < 10 mcmol/L (11-34) Creatine Kinase 616 U/L (39-308) Creatine Kinase MB (Mass) 9.9 ng/mL (0.0-3.6) Creatine Kinase MB Relative Index 1.6 % (0-4) Troponin I Quantitative < 0.017 ng/mL (0.000-0.055) < 0.017 ng/mL (0.000-0.055) IY-[id number]-Type Natriuretic Peptide 1952 pg/mL (0-449) Total Protein 6.6 g/dL (6.4-8.2) Albumin 2.8 g/dL (3.4-5.0) Albumin/Globulin Ratio 0.7 (1.0-1.7) Ethyl Alcohol Level 40 mg/dL (0-10) Test 01/17/21 16:30 01/17/21 17:55 01/17/21 20:40 01/17/21 22:45 Glucose (Fingerstick) 85 mg/dL (70-99) 98 mg/dL (70-99) Lactic Acid Level 4.4 mmol/L (0.4-2.0) Urine Collection Type Unknown Urine Color Geno Urine Clarity Cloudy Urine pH 6.0 (<5.0-8.0) Urine Specific [place] 1.015 (1.000-1.030) Urine Protein 30 mg/dL (NEG-TRACE) Urine Glucose (UA) Negative mg/dL (NEG) Urine Ketones (Stick) >=80 mg/dL (NEG) Urine Blood Large (NEG) Urine Nitrite Negative (NEG) Urine Bilirubin Small (NEG) Urine Urobilinogen Dipstick 1.0 mg/dL (0.2 mg/dL) Urine Leukocyte Esterase Negative (NEG) Urine RBC 11-20 /HPF (0-2) Urine WBC Occ /HPF (0-4) Urine Bacteria 0 /HPF (0-FEW) Urine Hyaline Casts Occasional /HPF Urine Mucus Slight /LPF Troponin I Quantitative 0.020 ng/mL (0.000-0.055) Test 01/18/21 01:05 01/18/21 01:30 01/18/21 06:08 01/18/21 09:50 Glucose (Fingerstick) 118 mg/dL (70-99) 121 mg/dL (70-99) Lactic Acid Level 1.7 mmol/L (0.4-2.0) Vitamin B12 Level 1107 pg/mL (247-911) Assessment and Plan Assessmemt and Plan Generalized weakness, failure to thrive, suspected UTI, septic shock, hypertension, A. fib, macrocytic anemia, Severe Malnutrition -2-week history worsening lower extremity weakness. Decreased p.o. intake as well. -Denies any inciting events - emergency room patient was provided fluids and electrolyte replacement; also found to have a leukocytosis, afebrile -CT head and C-spine unremarkable; chest x-ray unremarkable -Lactate improved -continue Rocephin -Continue aggressive hydration as suspect dehydration is a large contributing factor to patient's presentation -Nutrition consult -PT OT ordered -CIWA protocol ordered -We will check B12 and folate due to macrocytic anemia; will also give empiric doses of each -Home Eliquis will serve as DVT prophylaxis -Resumed as indicated -Diet as tolerated Comment Review of Relevant I have reviewed the following items dedrick (where applicable) has been applied. Medications: Current Medications Medications (Trade) Dose Ordered Sig/Senia Route PRN Reason Start Time Stop Time Status Last Admin Dose Admin Famotidine (Pepcid Vial) 20 mg 1X ONCE IVP 01/17/21 12:30 01/17/21 12:31 DC 01/17/21 12:27 Ondansetron HCl (Zofran) 4 mg 1X ONCE IVP 01/17/21 12:30 01/17/21 12:31 DC 01/17/21 12:27 Multivitamins 10 ml/Thiamine HCl 100 mg/Folic Acid 1 mg/Sodium Chloride 1,011.2 ml @ 1,000.088 mls/hr 1X ONCE IV 01/17/21 12:00 01/17/21 13:00 DC 01/17/21 12:27 Ceftriaxone Sodium (Rocephin) 1 gm 1X ONCE IVP 01/17/21 14:30 01/17/21 14:31 DC 01/17/21 14:35 Potassium Chloride (Klor-Con) 40 meq 1X ONCE PO 01/17/21 14:30 01/17/21 14:31 DC 01/17/21 14:36 Magnesium Sulfate 50 ml @ 25 mls/hr 1X ONCE IV 01/17/21 14:30 01/17/21 16:29 DC 01/17/21 14:35 Multivitamins 10 ml/Thiamine HCl 100 mg/Folic Acid 1 mg/Sodium Chloride 1,011.2 ml @ 100 mls/ hr DAILY IV 01/18/21 09:00 01/21/21 19:07 01/18/21 09:44 Lorazepam (Ativan) 4 mg PRN Q1HR PRN PO For CIWA 8-14 01/17/21 14:15 01/17/21 20:18 Aspirin (Ecotrin) 81 mg DAILY PO 01/17/21 15:00 01/18/21 08:32 Metoprolol Succinate (Toprol Xl) 12.5 mg DAILY PO 01/17/21 15:00 01/17/21 20:19 Losartan Potassium (Cozaar) 100 mg DAILY PO 01/17/21 15:00 01/17/21 20:19 Sodium Chloride 1,000 ml @ 1,000 mls/hr 1X ONCE IV 01/17/21 14:15 01/17/21 15:14 DC 01/17/21 14:35 Sodium Chloride 500 ml @ 500 mls/hr 1X ONCE IV 01/17/21 14:15 01/17/21 15:14 DC 01/17/21 14:34 Apixaban (Eliquis) 5 mg BID PO 01/17/21 21:00 01/18/21 08:32 Hydrochlorothiazide (Hydrodiuril) 25 mg DAILY PO 01/17/21 15:00 01/17/21 20:18 Ondansetron HCl (Zofran) 4 mg 1X ONCE IVP 01/17/21 15:00 01/17/21 15:04 DC 01/17/21 20:17 Vitamin B Complex (Folbic Tablet) 1 tab DAILY PO 01/17/21 16:00 01/18/21 08:32 Zolpidem Tartrate (Ambien) 5 mg PRN QHS PRN PO INSOMNIA 01/17/21 18:15 01/17/21 20:17 Nystatin (Nystop) 1 yoly BID TP 01/17/21 21:00 01/17/21 20:17 Sodium Chloride 1,000 ml @ 100 mls/hr Q10H IV 01/17/21 18:15 01/18/21 03:20 Sodium Chloride 1,000 ml @ 1,000 mls/hr 1X ONCE IV 01/18/21 08:30 01/18/21 09:29 DC 01/18/21 08:30 Justifications for Admission Other Justification SHANNAN MACHADO MD Jan 18, 2021 11:29
[2021-01-18] MEDS: cefTRIAXone IV Push 1 GM VIAL. IVP SCH (14:00)
--- NOTE | 2021-01-18 14:36 | NUR ---
SW following. Discussed with RN, pt from home with , room air, cardiac diet. PT/OT recommending SNF. COVID-19 negative. Wound care following. SW will continue to follow.
[2021-01-18 14:52] VITALS: BP 124/67
--- NOTE | 2021-01-18 17:37 | NUR ---
Wound Care Wound Type/Assessment: Consult to eval and treat multiple wounds present on admission. Abrasion to scalp is steri-stripped with a dry, stable scab; wound occurrence discontinued. Superficial pinpoint openings to R hip and posterior scrotum are pink and dry; wound occurrences discontinued. Small abrasion to L dorsal 2nd toe is pale pink with small amount of sanguinous drainage; periwound is pink and intact. Bilateral lower legs are edematous with thickened, wrinkly, dry skin, hemosiderin staining, and small scabs in several places. [place], clear fluid filled blister to R lateral lower leg pictured and measured, pinpoint opening allowing escape of fluid. Coccyx is slightly reddened, but blanchable. No other wound openings noted on head to toe assessment. Treatment Recommendations/Plan: L 2nd toe: xeroform and bandaid. Change every other day. R leg blister: Apply skin prep and cover with foam dressing. Change on thursday. Turn Q2H to prevent pressure sores Education provided: Pt is drowsy and inappropriate for education, but his and daughter are at bedside. Family members educated extensively on edema management, compression, pressure relief, skin care, and venous insufficiency. Offloading surface/device: Pt is able to turn independently, but requires reminders to do so. Pillows and wedge to position and float heels Recommended Referrals/Tests: NA Discharge Recommendations for dressings: As above.
[2021-01-18 19:00] VITALS: BP 133/76
[2021-01-18] MEDS: LACTOBACILLUS RHAMNOSUS GG 1 CAPSULE. PO SCH (21:13)
[2021-01-18 23:16] VITALS: BP 144/97
[2021-01-19] VITALS (7 sets, daily range): BP systolic 109–139; BP diastolic 67–88
--- NOTE | 2021-01-19 06:41 | NUR ---
Around 0445 pt. was yelling "HELP" because he managed to slide most of his body to the floor. I lowered him down to the floor the rest of the way. He stated that he was trying to sit in the chair. Pt. has no injuries and denies pain. Got him back to bed w/ the Beth
[2021-01-19] MEDS: IV NORMAL SALINE 1000ML BAG 1,000 ML IV SCH ×2 (08:30→18:18)
[2021-01-19 09:02] LABS: BASO % 0 % (0-3); EOS # 0.1 x10^3/uL (0.0-0.7); EOS % 1 % (0-3); HEMATOCRIT 30.5 % (39.0-53.0); HEMOGLOBIN 10.4 g/dL (13.0-17.5); LYMPH # 0.7 x10^3/uL (1.0-4.8); LYMPH % 8 % (24-48); MEAN CORPUSCULAR HEMOGLOBIN 38 pg (25-35); MEAN CORPUSCULAR HGB CONC 34 g/dL (31-37); MEAN CORPUSCULAR VOLUME 110 fL (79-100); MONO # 0.7 x10^3/uL (0.0-1.1); MONO % 7 % (0-9); NEUT # 7.8 x10^3/uL (1.8-7.7); NEUT % 84 % (31-73); PLATELET COUNT 173 x10^3/uL (140-400); RED BLOOD COUNT 2.77 x10^6/uL (4.30-5.70); RED CELL DISTRIBUTION WIDTH 14.9 % (11.5-14.5); WHITE BLOOD COUNT 9.4 x10^3/uL (4.0-11.0)
[2021-01-19 09:05] LABS: ALBUMIN 2.4 g/dL (3.4-5.0); ALBUMIN/GLOBULIN RATIO 0.7 (1.0-1.7); CALCIUM 8.1 mg/dL (8.5-10.1); CREATININE 0.9 mg/dL (0.7-1.3); GFR 81.6; POTASSIUM 3.2 mmol/L (3.5-5.1); TOTAL BILIRUBIN 0.7 mg/dL (0.2-1.0); TOTAL PROTEIN 5.7 g/dL (6.4-8.2)
[2021-01-19] MEDS: VITAMIN B12,B9,B6 COMPLEX 1 TABLET. PO SCH ×2 (10:23→10:27)
[2021-01-19] MEDS: LACTOBACILLUS RHAMNOSUS GG 1 CAPSULE. PO SCH ×2 (10:23→21:05)
[2021-01-19] MEDS: APIXABAN 5 MG TABLET. PO SCH ×2 (10:23→21:05)
[2021-01-19] MEDS: hydroCHLOROthiazide 25 MG TABLET PO SCH (10:24)
[2021-01-19] MEDS: LOSARTAN POTASSIUM 50 MG TABLET. PO SCH (10:24)
[2021-01-19] MEDS: MULTIVITAMIN with MINERAL TABLET. PO SCH (10:25)
[2021-01-19] MEDS: THIAMINE 100 MG TABLET. PO SCH (10:25)
[2021-01-19] MEDS: ASPIRIN ENTERIC COATED 81 MG TABLET.DR. PO SCH (10:25)
[2021-01-19] MEDS: METOPROLOL SUCC 24HR ER 25 MG TAB.ER.24H. PO SCH (10:25)
[2021-01-19] MEDS: NYSTATIN TOPICAL POWDER 15GM BOTTLE. TP SCH ×2 (10:25→21:05)
[2021-01-19] MEDS: FOLIC ACID 1 MG TABLET. PO SCH (10:28)
[2021-01-19] MEDS ORDERED: POTASSIUM CHLORIDE 20 MEQ TABLET.ER. PO ONE (13:30)
[2021-01-19] MEDS: cefTRIAXone IV Push 1 GM VIAL. IVP SCH (14:55)
[2021-01-20 03:14] VITALS: BP 109/64
[2021-01-20] MEDS: IV NORMAL SALINE 1000ML BAG 1,000 ML IV SCH (05:34)
[2021-01-20 07:00] VITALS: BP 167/99
--- NOTE | 2021-01-20 08:17 | PDOC ---
[facility] PROGRESS NOTE Date of Service DOS: DATE: 01/19/21 TIME: 08:16 Late entry for January 19 Chief Complaint Chief Complaint Weakness History of Present Illness History of Present Illness Patient 80-year-old male who presented to the hospital today due to 2-week history of bilateral lower extremity weakness and nausea and vomiting. Patient reports he has had progressive weakness in his lower extremities to the point where he is unable to even stand up now. Feels very weak all over. Cannot recall any episodes like this before. He also has developed in the past week nausea and vomiting with meals. Decreased p.o. intake because of this. In the emergency room patient met SIRS criteria particularly due to lactate of 5. Patient does not know of any Covid contacts he knows of, he does have his Covid vaccines. Infectious work-up unremarkable thus far however patient has not been able to provide a urine sample thus suspect is a UTI. Denies hematuria and dysuria. Says that for the past few weeks when he has to urinate in the middle of the night he is too weak to get up to get to the bathroom so he just pees himself. Patient is a pretty heavy alcoholic, 3-4 scotches a night. When seen patient was denying headache, vision changes, chest pain, dysuria. Of note patient reports that about 1 year ago he had an episode of MS-like symptoms that are somewhat similar to this. Says they went away on their own thus he never pursued any sort of work-up. 01/18 Evaluated at bedside. No major clinical changes. Continuing current plan, work with PT OT. Continue hydration, continue antibiotics. 01/19 No major clinical changes. Patient is somewhat lethargic today, PT OT ordered. We will need placement. No other changes otherwise. Vitals/I&O Vitals/I&O: Vital Signs Date Time Temp Pulse Resp B/P (MAP) Pulse Ox O2 Delivery O2 Flow Rate FiO2 01/20/21 03:14 98.5 77 24 109/64 (79) 95 98.5 01/19/21 19:57 Room Air I & O 01/19/21 01/19/21 01/20/21 15:00 23:00 07:00 Intake Total 120 ml 1200 ml Output Total 1701 ml 700 ml Balance -1581 ml 500 ml Physical Exam General: Alert, Oriented X3, Cooperative Heart: Regular rate, Normal S1, Normal S2 Lungs: Clear, Wheezing Abdomen: Normal bowel sounds, Soft, No tenderness Extremities: Other (lower extremity edema) Skin: No rashes, No significant lesion Labs Labs: Laboratory Tests Test 01/19/21 08:35 01/19/21 12:17 01/19/21 16:57 01/19/21 19:25 White Blood Count 9.4 x10^3/uL (4.0-11.0) Red Blood Count 2.77 x10^6/uL (4.30-5.70) Hemoglobin 10.4 g/dL (13.0-17.5) Hematocrit 30.5 % (39.0-53.0) Mean Corpuscular Volume 110 fL (79-100) Mean Corpuscular Hemoglobin 38 pg (25-35) Mean Corpuscular Hemoglobin Concent 34 g/dL (31-37) Red Cell Distribution Width 14.9 % (11.5-14.5) Platelet Count 173 x10^3/uL (140-400) Neutrophils (%) (Auto) 84 % (31-73) Lymphocytes (%) (Auto) 8 % (24-48) Monocytes (%) (Auto) 7 % (0-9) Eosinophils (%) (Auto) 1 % (0-3) Basophils (%) (Auto) 0 % (0-3) Neutrophils # (Auto) 7.8 x10^3/uL (1.8-7.7) Lymphocytes # (Auto) 0.7 x10^3/uL (1.0-4.8) Monocytes # (Auto) 0.7 x10^3/uL (0.0-1.1) Eosinophils # (Auto) 0.1 x10^3/uL (0.0-0.7) Basophils # (Auto) 0.0 x10^3/uL (0.0-0.2) Sodium Level 138 mmol/L (136-145) Potassium Level 3.2 mmol/L (3.5-5.1) Chloride Level 101 mmol/L (98-107) Carbon Dioxide Level 25 mmol/L (21-32) Anion Gap 12 (6-14) Blood Urea Nitrogen 17 mg/dL (8-26) Creatinine 0.9 mg/dL (0.7-1.3) Estimated GFR (Cockcroft-Gault) 81.6 BUN/Creatinine Ratio 19 (6-20) Glucose Level 133 mg/dL (70-99) Calcium Level 8.1 mg/dL (8.5-10.1) Magnesium Level 1.3 mg/dL (1.8-2.4) Total Bilirubin 0.7 mg/dL (0.2-1.0) Aspartate Amino Transf (AST/SGOT) 33 U/L (15-37) Alanine Aminotransferase (ALT/SGPT) 27 U/L (16-63) Alkaline Phosphatase 59 U/L (46-116) Total Protein 5.7 g/dL (6.4-8.2) Albumin 2.4 g/dL (3.4-5.0) Albumin/Globulin Ratio 0.7 (1.0-1.7) Glucose (Fingerstick) 173 mg/dL (70-99) 192 mg/dL (70-99) 215 mg/dL (70-99) Test 01/20/21 07:51 Glucose (Fingerstick) 145 mg/dL (70-99) Assessment and Plan Assessmemt and Plan Problems Medical Problems: (1) Generalized weakness Status: Acute (2) Hypoglycemia Status: Acute (3) Hypokalemia Status: Acute (4) Hypomagnesemia Status: Acute (5) Septic shock Status: Acute Generalized weakness, failure to thrive, suspected UTI, septic shock, hypertension, A. fib, macrocytic anemia, Severe Malnutrition -2-week history worsening lower extremity weakness. Decreased p.o. intake as well. -Denies any inciting events - emergency room patient was provided fluids and electrolyte replacement; also found to have a leukocytosis, afebrile -CT head and C-spine unremarkable; chest x-ray unremarkable -Lactate improved -continue Rocephin -Continue aggressive hydration as suspect dehydration is a large contributing factor to patient's presentation -Nutrition consult -PT OT ordered -CIWA protocol ordered -We will check B12 and folate due to macrocytic anemia; will also give empiric doses of each -Home Eliquis will serve as DVT prophylaxis -Resumed as indicated -Diet as tolerated Comment Review of Relevant I have reviewed the following items dedrick (where applicable) has been applied. Medications: Current Medications Medications (Trade) Dose Ordered Sig/Senia Route PRN Reason Start Time Stop Time Status Last Admin Dose Admin Multivitamins (Thera M Plus) 1 tab DAILY PO 01/19/21 09:00 01/19/21 10:25 Thiamine Mononitrate (Vitamin B-1) 100 mg DAILY PO 01/19/21 09:00 01/19/21 10:25 Folic Acid (Folic Acid) 1 mg DAILY PO 01/19/21 09:00 01/19/21 10:28 Potassium Chloride (Klor-Con) 40 meq 1X ONCE PO 01/19/21 13:30 01/19/21 13:31 DC 01/19/21 14:54 Justifications for Admission Other Justification SHANNAN MACHADO MD Jan 20, 2021 08:17
[2021-01-20] MEDS ORDERED: MULTIVIT INFUSN,ADULT 4,VIT K 10 ML, THIAMINE INJ 100 MG, FOLIC ACID INJ 1 MG in IV NOR... IV SCH ×2 (09:00)
[2021-01-20] MEDS: LACTOBACILLUS RHAMNOSUS GG 1 CAPSULE. PO SCH ×2 (10:09→20:54)
[2021-01-20] MEDS: VITAMIN B12,B9,B6 COMPLEX 1 TABLET. PO SCH (10:09)
[2021-01-20] MEDS: THIAMINE 100 MG TABLET. PO SCH (10:09)
[2021-01-20] MEDS: NYSTATIN TOPICAL POWDER 15GM BOTTLE. TP SCH ×2 (10:09→20:55)
[2021-01-20] MEDS: METOPROLOL SUCC 24HR ER 25 MG TAB.ER.24H. PO SCH (10:10)
[2021-01-20] MEDS: LOSARTAN POTASSIUM 50 MG TABLET. PO SCH (10:11)
[2021-01-20] MEDS: APIXABAN 5 MG TABLET. PO SCH ×2 (10:12→20:54)
[2021-01-20] MEDS: MULTIVITAMIN with MINERAL TABLET. PO SCH (10:12)
[2021-01-20] MEDS: FOLIC ACID 1 MG TABLET. PO SCH (10:12)
[2021-01-20] MEDS: ASPIRIN ENTERIC COATED 81 MG TABLET.DR. PO SCH (10:12)
[2021-01-20] MEDS: hydroCHLOROthiazide 25 MG TABLET PO SCH (10:12)
[2021-01-20 11:00] VITALS: BP 174/109
--- NOTE | 2021-01-20 11:59 | PDOC ---
[facility] [facility] PROGRESS NOTE Date of Service DOS: DATE: 01/20/21 TIME: 11:47 Chief Complaint Chief Complaint Generalized weakness Alcohol use disorder Failure to thrive Suspected UTI Septic shock Hypertension A. fib Macrocytic anemia Severe Malnutrition History of Present Illness History of Present Illness Patient 80-year-old male who presented to the hospital today due to 2-week history of bilateral lower extremity weakness and nausea and vomiting. Patient reports he has had progressive weakness in his lower extremities to the point where he is unable to even stand up now. Feels very weak all over. Cannot recall any episodes like this before. He also has developed in the past week nausea and vomiting with meals. Decreased p.o. intake because of this. In the emergency room patient met SIRS criteria particularly due to lactate of 5. Patient does not know of any Covid contacts he knows of, he does have his Covid vaccines. Infectious work-up unremarkable thus far however patient has not been able to provide a urine sample thus suspect is a UTI. Denies hematuria and dysuria. Says that for the past few weeks when he has to urinate in the middle of the night he is too weak to get up to get to the bathroom so he just pees himself. Patient is a pretty heavy alcoholic, 3-4 scotches a night. When seen patient was denying headache, vision changes, chest pain, dysuria. Of note patient reports that about 1 year ago he had an episode of MS-like symptoms that are somewhat similar to this. Says they went away on their own thus he never pursued any sort of work-up. 01/18 Evaluated at bedside. No major clinical changes. Continuing current plan, work with PT OT. Continue hydration, continue antibiotics. 01/19 No major clinical changes. Patient is somewhat lethargic today, PT OT ordered. We will need placement. No other changes otherwise. 01/20/2021: Patient seen and examined. Awake and mildly confused. Reports he isn't in any pain. Hgb 10.4. Discussed with RN. Chart reviewed. Vitals/I&O Vitals/I&O: Vital Signs Date Time Temp Pulse Resp B/P (MAP) Pulse Ox O2 Delivery O2 Flow Rate FiO2 01/20/21 11:00 97.7 79 23 174/109 (130) 94 97.7 01/19/21 19:57 Room Air I & O 01/19/21 01/19/21 01/20/21 15:00 23:00 07:00 Intake Total 120 ml 1200 ml Output Total 1701 ml 700 ml Balance -1581 ml 500 ml Physical Exam General: Alert, Oriented X3, Cooperative Heart: Regular rate, Normal S1, Normal S2 Lungs: Clear, Wheezing Abdomen: Normal bowel sounds, Soft, No tenderness Extremities: Other (lower extremity edema) Skin: No rashes, No significant lesion Labs Labs: Laboratory Tests Test 01/19/21 12:17 01/19/21 16:57 01/19/21 19:25 01/20/21 07:51 Glucose (Fingerstick) 173 mg/dL (70-99) 192 mg/dL (70-99) 215 mg/dL (70-99) 145 mg/dL (70-99) Review of Systems Review of Systems: Gastrointestinal: No nausea or vomiting. Genitourinary: No urinary frequency or dysuria. Assessment and Plan Assessmemt and Plan Problems Medical Problems: (1) Generalized weakness Status: Acute (2) Hypoglycemia Status: Acute (3) Hypokalemia Status: Acute (4) Hypomagnesemia Status: Acute (5) Septic shock Status: Acute Generalized weakness Alcohol use disorder Failure to thrive Suspected UTI Septic shock Hypertension A. fib Macrocytic anemia Severe Malnutrition Plan: 1) Start clinimix 2) Continue cetriaxone and nystatin 3) Consult speech therapy 4) Consult social science manager 5) Continue thiamine and folic acid 6) Eliquis for DVT prophylaxis 7) Home medications 8) PTOT 9) Full code Comment Review of Relevant I have reviewed the following items dedrick (where applicable) has been applied. Medications: Current Medications Medications (Trade) Dose Ordered Sig/Senia Route PRN Reason Start Time Stop Time Status Last Admin Dose Admin Potassium Chloride (Klor-Con) 40 meq 1X ONCE PO 01/19/21 13:30 01/19/21 13:31 DC 01/19/21 14:54 Justifications for Admission Other Justification CAL VAZQUEZ III DO Jan 20, 2021 11:59
[2021-01-20] MEDS: AA 4.25 %/CALCIUM/LYTES/D5W 1,000 ML IV SCH ×2 (12:34→20:55)
[2021-01-20] MEDS: cefTRIAXone IV Push 1 GM VIAL. IVP SCH (14:04)
[2021-01-20 15:00] VITALS: BP 139/87
[2021-01-20] MEDS ORDERED: MAGNESIUM SULFATE 2GM 50 ML IV ONE (18:00)
[2021-01-20 19:00] VITALS: BP 147/104
[2021-01-20 19:03] LABS: MAGNESIUM 1.4 mg/dL (1.8-2.4); POTASSIUM 3.3 mmol/L (3.5-5.1)
[2021-01-20 22:39] VITALS: BP 163/97
[2021-01-20] MEDS: ZOLPIDEM 5 MG TABLET. PO PRN (23:58)
[2021-01-21 02:41] VITALS: BP 157/112
[2021-01-21 04:39] LABS: BASO % 1 % (0-3); EOS # 0.2 x10^3/uL (0.0-0.7); EOS % 3 % (0-3); HEMOGLOBIN 9.7 g/dL (13.0-17.5); LYMPH # 0.9 x10^3/uL (1.0-4.8); LYMPH % 13 % (24-48); MEAN CORPUSCULAR HEMOGLOBIN 38 pg (25-35); MEAN CORPUSCULAR HGB CONC 35 g/dL (31-37); MEAN CORPUSCULAR VOLUME 110 fL (79-100); MONO # 0.8 x10^3/uL (0.0-1.1); MONO % 11 % (0-9); NEUT # 5.1 x10^3/uL (1.8-7.7); NEUT % 72 % (31-73); PLATELET COUNT 158 x10^3/uL (140-400); RED BLOOD COUNT 2.55 x10^6/uL (4.30-5.70); RED CELL DISTRIBUTION WIDTH 14.6 % (11.5-14.5)
[2021-01-21 05:26] LABS: CALCIUM 8.4 mg/dL (8.5-10.1); CREATININE 0.8 mg/dL (0.7-1.3); GFR 93.5; POTASSIUM 3.3 mmol/L (3.5-5.1)
[2021-01-21 07:00] VITALS: BP 135/100
[2021-01-21] MEDS: ANTI-COAG MONITOR BY PHARMACY. MC PRN (10:24)
[2021-01-21] MEDS: MULTIVITAMIN with MINERAL TABLET. PO SCH (10:35)
[2021-01-21] MEDS: ASPIRIN ENTERIC COATED 81 MG TABLET.DR. PO SCH (10:35)
[2021-01-21] MEDS: VITAMIN B12,B9,B6 COMPLEX 1 TABLET. PO SCH (10:35)
[2021-01-21] MEDS: LACTOBACILLUS RHAMNOSUS GG 1 CAPSULE. PO SCH ×2 (10:35→20:43)
[2021-01-21] MEDS: NYSTATIN TOPICAL POWDER 15GM BOTTLE. TP SCH ×2 (10:35→21:00)
[2021-01-21] MEDS: THIAMINE 100 MG TABLET. PO SCH (10:36)
[2021-01-21] MEDS: METOPROLOL SUCC 24HR ER 25 MG TAB.ER.24H. PO SCH (10:37)
[2021-01-21] MEDS: FOLIC ACID 1 MG TABLET. PO SCH (10:38)
[2021-01-21] MEDS: APIXABAN 5 MG TABLET. PO SCH ×2 (10:38→20:42)
[2021-01-21] MEDS: hydroCHLOROthiazide 25 MG TABLET PO SCH (10:38)
[2021-01-21] MEDS: LOSARTAN POTASSIUM 50 MG TABLET. PO SCH (10:38)
--- NOTE | 2021-01-21 10:50 | PDOC ---
[employer] [facility] PROGRESS NOTE Date of Service DOS: DATE: 01/21/21 TIME: 10:49 Chief Complaint Chief Complaint A/P: Generalized weakness Alcohol use disorder Failure to thrive Septic shock Right 2nd toe wound - treating as cellulitis Left leg blistering - treating as cellulitis Hypertension A. fib Macrocytic anemia Severe Malnutrition Hypokalemia Hypomagnesemia History of multiple sclerosis? - daughter notes remote diagnosis - mostly affected his hands FEN - NPO PPX - heparin CODE - FULL Dispo - inpatient History of Present Illness History of Present Illness Mr Gould is a 80-year-old male who presented to the hospital due to 2-week history of bilateral lower extremity weakness and nausea and vomiting. Patient reports he has had progressive weakness in his lower extremities to the point where he is unable to even stand up now. Feels very weak all over. Cannot recall any episodes like this before. He also has developed in the past week nausea and vomiting with meals. Decreased p.o. intake because of this. In the emergency room patient met SIRS criteria particularly due to lactate of 5. Patient does not know of any Covid contacts he knows of, he does have his Covid vaccines. Infectious work-up unremarkable thus far however patient has not been able to provide a urine sample thus suspect is a UTI. Denies hematuria and dysuria. Says that for the past few weeks when he has to urinate in the middle of the night he is too weak to get up to get to the bathroom so he just pees himself. Patient is a pretty heavy alcoholic, 3-4 scotches a night. When seen patient was denying headache, vision changes, chest pain, dysuria. Of note patient reports that about 1 year ago he had an episode of MS-like symptoms that are somewhat similar to this. Says they went away on their own thus he never pursued any sort of work-up. 01/18: Evaluated at bedside. No major clinical changes. Continuing current plan, work with PT OT. Continue hydration, continue antibiotics. 01/19: No major clinical changes. Patient is somewhat lethargic today, PT OT ord ered. We will need placement. No other changes otherwise. 01/20: Patient seen and examined. Awake and mildly confused. Reports he isn't in any pain. Hgb 10.4. Discussed with RN. Chart reviewed. Hb 9.7, mg1.2, K3.3. Still very weak, confused. Pulling at his [place]. His daughter, Dorinda, notes he and his are chronic heavy alcohol users and he sits and drinks scotch all day long. Vitals/I&O Vitals/I&O: Vital Signs Date Time Temp Pulse Resp B/P (MAP) Pulse Ox O2 Delivery O2 Flow Rate FiO2 01/21/21 10:38 93 135/100 01/21/21 07:00 97.5 18 98 Room Air 97.5 I & O 01/20/21 01/20/21 01/21/21 15:00 23:00 07:00 Intake Total 200 ml 400 ml Output Total 1700 ml 1200 ml Balance 200 ml -1300 ml -1200 ml Physical Exam General: Alert, Cooperative Heart: Regular rate, Normal S1, Normal S2 Lungs: Clear, Wheezing Abdomen: Normal bowel sounds, Soft, No tenderness Extremities: Other (lower extremity edema) Skin: No rashes, No significant lesion Labs Labs: Laboratory Tests Test 01/20/21 11:56 01/20/21 16:44 01/20/21 18:50 01/20/21 19:05 Glucose (Fingerstick) 169 mg/dL (70-99) 213 mg/dL (70-99) 223 mg/dL (70-99) Potassium Level 3.3 mmol/L (3.5-5.1) Magnesium Level 1.4 mg/dL (1.8-2.4) Test 01/21/21 04:10 01/21/21 08:20 White Blood Count 7.0 x10^3/uL (4.0-11.0) Red Blood Count 2.55 x10^6/uL (4.30-5.70) Hemoglobin 9.7 g/dL (13.0-17.5) Hematocrit 28.0 % (39.0-53.0) Mean Corpuscular Volume 110 fL (79-100) Mean Corpuscular Hemoglobin 38 pg (25-35) Mean Corpuscular Hemoglobin Concent 35 g/dL (31-37) Red Cell Distribution Width 14.6 % (11.5-14.5) Platelet Count 158 x10^3/uL (140-400) Neutrophils (%) (Auto) 72 % (31-73) Lymphocytes (%) (Auto) 13 % (24-48) Monocytes (%) (Auto) 11 % (0-9) Eosinophils (%) (Auto) 3 % (0-3) Basophils (%) (Auto) 1 % (0-3) Neutrophils # (Auto) 5.1 x10^3/uL (1.8-7.7) Lymphocytes # (Auto) 0.9 x10^3/uL (1.0-4.8) Monocytes # (Auto) 0.8 x10^3/uL (0.0-1.1) Eosinophils # (Auto) 0.2 x10^3/uL (0.0-0.7) Basophils # (Auto) 0.0 x10^3/uL (0.0-0.2) Sodium Level 134 mmol/L (136-145) Potassium Level 3.3 mmol/L (3.5-5.1) Chloride Level 99 mmol/L (98-107) Carbon Dioxide Level 29 mmol/L (21-32) Anion Gap 6 (6-14) Blood Urea Nitrogen 12 mg/dL (8-26) Creatinine 0.8 mg/dL (0.7-1.3) Estimated GFR (Cockcroft-Gault) 93.5 Glucose Level 183 mg/dL (70-99) Calcium Level 8.4 mg/dL (8.5-10.1) Glucose (Fingerstick) 160 mg/dL (70-99) Assessment and Plan Assessmemt and Plan Problems Medical Problems: (1) Generalized weakness Status: Acute (2) Hypoglycemia Status: Acute (3) Hypokalemia Status: Acute (4) Hypomagnesemia Status: Acute (5) Septic shock Status: Acute Comment Review of Relevant I have reviewed the following items dedrick (where applicable) has been applied. Medications: Current Medications Medications (Trade) Dose Ordered Sig/Senia Route PRN Reason Start Time Stop Time Status Last Admin Dose Admin Magnesium Sulfate 50 ml @ 25 mls/hr 1X ONCE IV 01/20/21 18:00 01/20/21 19:59 DC 01/20/21 17:22 Justifications for Admission Other Justification SHANNAN LAL MD Jan 21, 2021 10:50
[2021-01-21 11:00] VITALS: BP 149/104
[2021-01-21] MEDS ORDERED: POTASSIUM CHLORIDE 20 MEQ TABLET.ER. PO ONE (11:00)
--- NOTE | 2021-01-21 13:45 | NUR ---
SW following. Discussed with RN, pt from home with , room air, NPO, COVID-19 negative. Therapy recommending SNF. SW spoke with pt's daughter, Dorinda (ph: [phone]) - she is agreeable. SW provided options of facilities, awaiting choice of facility. SW will continue to follow.
[2021-01-21] MEDS ORDERED: MAGNESIUM SULFATE 2GM 50 ML IV ONE (14:15)
[2021-01-21 15:00] VITALS: BP 156/105
[2021-01-21] MEDS: AA 4.25 %/CALCIUM/LYTES/D5W 1,000 ML IV SCH ×2 (16:08→23:48)
[2021-01-21] MEDS: cefTRIAXone IV Push 1 GM VIAL. IVP SCH (16:10)
[2021-01-21 19:00] VITALS: BP 146/87
[2021-01-21 22:40] VITALS: BP 138/92
[2021-01-22 03:00] VITALS: BP 147/95
[2021-01-22 07:00] VITALS: BP 122/95
[2021-01-22 07:14] LABS: BASO % 0 % (0-3); EOS # 0.2 x10^3/uL (0.0-0.7); EOS % 2 % (0-3); HEMOGLOBIN 11.3 g/dL (13.0-17.5); LYMPH # 0.8 x10^3/uL (1.0-4.8); LYMPH % 10 % (24-48); MEAN CORPUSCULAR HEMOGLOBIN 38 pg (25-35); MEAN CORPUSCULAR HGB CONC 35 g/dL (31-37); MEAN CORPUSCULAR VOLUME 108 fL (79-100); MONO # 0.8 x10^3/uL (0.0-1.1); MONO % 10 % (0-9); NEUT # 6.4 x10^3/uL (1.8-7.7); NEUT % 77 % (31-73); PLATELET COUNT 195 x10^3/uL (140-400); RED BLOOD COUNT 2.95 x10^6/uL (4.30-5.70); RED CELL DISTRIBUTION WIDTH 14.4 % (11.5-14.5); WHITE BLOOD COUNT 8.3 x10^3/uL (4.0-11.0)
[2021-01-22 07:45] LABS: CALCIUM 8.8 mg/dL (8.5-10.1); CREATININE 0.7 mg/dL (0.7-1.3); GFR 109.1
[2021-01-22] MEDS: LOSARTAN POTASSIUM 50 MG TABLET. PO SCH (08:31)
[2021-01-22] MEDS: LACTOBACILLUS RHAMNOSUS GG 1 CAPSULE. PO SCH ×2 (08:32→21:15)
[2021-01-22] MEDS: FOLIC ACID 1 MG TABLET. PO SCH (08:33)
[2021-01-22] MEDS: APIXABAN 5 MG TABLET. PO SCH ×2 (08:33→21:15)
[2021-01-22] MEDS: ASPIRIN ENTERIC COATED 81 MG TABLET.DR. PO SCH (08:33)
[2021-01-22] MEDS: MULTIVITAMIN with MINERAL TABLET. PO SCH (08:34)
[2021-01-22] MEDS: THIAMINE 100 MG TABLET. PO SCH (08:36)
[2021-01-22] MEDS: METOPROLOL SUCC 24HR ER 25 MG TAB.ER.24H. PO SCH (08:36)
[2021-01-22] MEDS: NYSTATIN TOPICAL POWDER 15GM BOTTLE. TP SCH ×2 (08:37→21:00)
[2021-01-22] MEDS: ANTI-COAG MONITOR BY PHARMACY. MC PRN (09:21)
--- NOTE | 2021-01-22 10:31 | NUR ---
ANDREW following. Discussed with RN, ANDREW sent message to pt's daughter, Dorinda to determine facility choice, awaiting response. ANDREW will continue to follow. Addendum: 01/22/21 at 1156 by IRIS MORALES Dorinda requested referral be sent to any facility close to the pt's home. ANDREW faxed referral to [facility] to start with. Addendum: 01/22/21 at 1447 by IRIS MORALES [facility] insurance auth. RN notified. Repeat COVID requested.
[2021-01-22 11:00] VITALS: BP 100/68
[2021-01-22] MEDS ORDERED: KETOROLAC 30 MG/ML VIAL. IVP PRN (11:00)
[2021-01-22] MEDS ORDERED: MAGNESIUM SULFATE 1GM 100 ML IV ONE (11:00)
[2021-01-22] MEDS ORDERED: POTASSIUM CHLORIDE 20 MEQ TABLET.ER. PO ONE ×2 (11:00→13:00)
--- NOTE | 2021-01-22 11:02 | PDOC ---
[employer] PROGRESS NOTE Date of Service DOS: DATE: 01/22/21 TIME: 11:01 Chief Complaint Chief Complaint A/P: Generalized weakness Alcohol use disorder Failure to thrive Septic shock Right 2nd toe wound - treating as cellulitis Left leg blistering - treating as cellulitis Hypertension A. fib Macrocytic anemia Severe Malnutrition Hypokalemia Hypomagnesemia History of multiple sclerosis? - daughter notes remote diagnosis - mostly affected his hands FEN - NPO PPX - heparin CODE - FULL Dispo - inpatient History of Present Illness History of Present Illness Mr Gould is a 80-year-old male who presented to the hospital due to 2-week history of bilateral lower extremity weakness and nausea and vomiting. Patient reports he has had progressive weakness in his lower extremities to the point where he is unable to even stand up now. Feels very weak all over. Cannot recall any episodes like this before. He also has developed in the past week nausea and vomiting with meals. Decreased p.o. intake because of this. In the emergency room patient met SIRS criteria particularly due to lactate of 5. Patient does not know of any Covid contacts he knows of, he does have his Covid vaccines. Infectious work-up unremarkable thus far however patient has not been able to provide a urine sample thus suspect is a UTI. Denies hematuria and dysuria. Says that for the past few weeks when he has to urinate in the middle of the night he is too weak to get up to get to the bathroom so he just pees himself. Patient is a pretty heavy alcoholic, 3-4 scotches a night. When seen patient was denying headache, vision changes, chest pain, dysuria. Of note patient reports that about 1 year ago he had an episode of MS-like symptoms that are somewhat similar to this. Says they went away on their own thus he never pursued any sort of work-up. 01/18: Evaluated at bedside. No major clinical changes. Continuing current plan, work with PT OT. Continue hydration, continue antibiotics. 01/19: No major clinical changes. Patient is somewhat lethargic today, PT OT ord ered. We will need placement. No other changes otherwise. 01/20: Patient seen and examined. Awake and mildly confused. Reports he isn't in any pain. Hgb 10.4. Discussed with RN. Chart reviewed. 01/21: Hb 9.7, mg1.2, K3.3. Very weak, confused. Pulling at [place]. Daughter, Dorinda, notes he and his are chronic heavy alcohol users and he sits and drinks scotch all day. Afebrile. Mag 1.8, K3.3. Very weak. Little more alert. Complaining of headache. Vitals/I&O Vitals/I&O: Vital Signs Date Time Temp Pulse Resp B/P (MAP) Pulse Ox O2 Delivery O2 Flow Rate FiO2 01/22/21 08:36 97 122/78 01/22/21 07:47 Room Air 01/22/21 07:00 97.9 17 97 97.9 I & O 01/21/21 01/21/21 01/22/21 15:00 23:00 07:00 Output Total 1500 ml 1950 ml 1350 ml Balance -1500 ml -1950 ml -1350 ml Physical Exam General: Alert, Cooperative Heart: Regular rate, Normal S1, Normal S2 Lungs: Clear, Wheezing Abdomen: Normal bowel sounds, Soft, No tenderness Extremities: Other (lower extremity edema) Skin: No rashes, No significant lesion Labs Labs: Laboratory Tests Test 01/21/21 12:06 01/21/21 16:38 01/21/21 19:22 01/22/21 05:55 Glucose (Fingerstick) 207 mg/dL (70-99) 172 mg/dL (70-99) 157 mg/dL (70-99) White Blood Count 8.3 x10^3/uL (4.0-11.0) Red Blood Count 2.95 x10^6/uL (4.30-5.70) Hemoglobin 11.3 g/dL (13.0-17.5) Hematocrit 32.0 % (39.0-53.0) Mean Corpuscular Volume 108 fL (79-100) Mean Corpuscular Hemoglobin 38 pg (25-35) Mean Corpuscular Hemoglobin Concent 35 g/dL (31-37) Red Cell Distribution Width 14.4 % (11.5-14.5) Platelet Count 195 x10^3/uL (140-400) Neutrophils (%) (Auto) 77 % (31-73) Lymphocytes (%) (Auto) 10 % (24-48) Monocytes (%) (Auto) 10 % (0-9) Eosinophils (%) (Auto) 2 % (0-3) Basophils (%) (Auto) 0 % (0-3) Neutrophils # (Auto) 6.4 x10^3/uL (1.8-7.7) Lymphocytes # (Auto) 0.8 x10^3/uL (1.0-4.8) Monocytes # (Auto) 0.8 x10^3/uL (0.0-1.1) Eosinophils # (Auto) 0.2 x10^3/uL (0.0-0.7) Basophils # (Auto) 0.0 x10^3/uL (0.0-0.2) Sodium Level 131 mmol/L (136-145) Potassium Level 3.0 mmol/L (3.5-5.1) Chloride Level 93 mmol/L (98-107) Carbon Dioxide Level 35 mmol/L (21-32) Anion Gap 3 (6-14) Blood Urea Nitrogen 9 mg/dL (8-26) Creatinine 0.7 mg/dL (0.7-1.3) Estimated GFR (Cockcroft-Gault) 109.1 Glucose Level 157 mg/dL (70-99) Calcium Level 8.8 mg/dL (8.5-10.1) Magnesium Level 1.8 mg/dL (1.8-2.4) Test 01/22/21 07:08 Glucose (Fingerstick) 182 mg/dL (70-99) Assessment and Plan Assessmemt and Plan Problems Medical Problems: (1) Generalized weakness Status: Acute (2) Hypoglycemia Status: Acute (3) Hypokalemia Status: Acute (4) Hypomagnesemia Status: Acute (5) Septic shock Status: Acute Comment Review of Relevant I have reviewed the following items dedrick (where applicable) has been applied. Medications: Current Medications Medications (Trade) Dose Ordered Sig/Senia Route PRN Reason Start Time Stop Time Status Last Admin Dose Admin Magnesium Sulfate 50 ml @ 25 mls/hr 1X ONCE IV 01/21/21 14:15 01/21/21 16:14 DC 01/21/21 16:11 Justifications for Admission Other Justification SHANNAN LAL MD Jan 22, 2021 11:02
--- NOTE | 2021-01-22 11:50 | NUR ---
I assisted Alena Machado with salinas removal and concur with her charting. Amrita Wyman RN [facility]
[2021-01-22] MEDS: cefTRIAXone IV Push 1 GM VIAL. IVP SCH (13:21)
[2021-01-22 15:00] VITALS: BP 96/65
[2021-01-22 19:00] VITALS: BP 102/61
--- NOTE | 2021-01-22 21:20 | NUR ---
RN entered room to administer pt meds and found pt on floor. When RN asked what pt doing on floor, pt replied, " Taking a nap." Pt reported was trying to use the bathroom. Urinal found on floor. Two RN's and the tech were able to get pt off floor and back to bed. Large scrape noted to R stovall - pics taken and placed in chart. Minor abrasion noted to medial L knee. Pic also taken of this and placed in chart. Pt denied hitting head. Denied any other pain. Pt settled back in bed. Bed alarm set.
[2021-01-22 23:00] VITALS: BP 135/85
[2021-01-23 03:00] VITALS: BP 127/85
[2021-01-23 06:29] LABS: BASO % 0 % (0-3); EOS # 0.2 x10^3/uL (0.0-0.7); EOS % 2 % (0-3); HEMATOCRIT 34.8 % (39.0-53.0); HEMOGLOBIN 12.1 g/dL (13.0-17.5); LYMPH # 0.9 x10^3/uL (1.0-4.8); LYMPH % 11 % (24-48); MEAN CORPUSCULAR HEMOGLOBIN 38 pg (25-35); MEAN CORPUSCULAR HGB CONC 35 g/dL (31-37); MEAN CORPUSCULAR VOLUME 109 fL (79-100); MONO # 0.9 x10^3/uL (0.0-1.1); MONO % 11 % (0-9); NEUT # 6.3 x10^3/uL (1.8-7.7); NEUT % 76 % (31-73); PLATELET COUNT 233 x10^3/uL (140-400); WHITE BLOOD COUNT 8.3 x10^3/uL (4.0-11.0)
[2021-01-23 06:53] LABS: CALCIUM 8.8 mg/dL (8.5-10.1); GFR 72.3; POTASSIUM 3.1 mmol/L (3.5-5.1)
[2021-01-23 07:00] VITALS: BP 146/90
[2021-01-23] MEDS ORDERED: ACETAMINOPHEN 325 MG TABLET. PO PRN (08:00)
[2021-01-23] MEDS ORDERED: ONDANSETRON PF 4 MG/2 ML VIAL. IVP PRN (08:00)
--- NOTE | 2021-01-23 08:00 | PDOC ---
[employer] PROGRESS NOTE Date of Service DOS: DATE: 01/23/21 TIME: 08:00 Chief Complaint Chief Complaint A/P: Generalized weakness Alcohol use disorder Failure to thrive Septic shock Right 2nd toe wound - treating as cellulitis Left leg blistering - treating as cellulitis Hypertension A. fib Macrocytic anemia Severe Malnutrition Hypokalemia Hypomagnesemia History of multiple sclerosis? - daughter notes remote diagnosis - mostly affected his hands FEN - NPO PPX - heparin CODE - FULL Dispo - inpatient History of Present Illness History of Present Illness Mr Gould is a 80-year-old male who presented to the hospital due to 2-week history of bilateral lower extremity weakness and nausea and vomiting. Patient reports he has had progressive weakness in his lower extremities to the point where he is unable to even stand up now. Feels very weak all over. Cannot recall any episodes like this before. He also has developed in the past week nausea and vomiting with meals. Decreased p.o. intake because of this. In the emergency room patient met SIRS criteria particularly due to lactate of 5. Patient does not know of any Covid contacts he knows of, he does have his Covid vaccines. Infectious work-up unremarkable thus far however patient has not been able to provide a urine sample thus suspect is a UTI. Denies hematuria and dysuria. Says that for the past few weeks when he has to urinate in the middle of the night he is too weak to get up to get to the bathroom so he just pees himself. Patient is a pretty heavy alcoholic, 3-4 scotches a night. When seen patient was denying headache, vision changes, chest pain, dysuria. Of note patient reports that about 1 year ago he had an episode of MS-like symptoms that are somewhat similar to this. Says they went away on their own thus he never pursued any sort of work-up. 01/18: Evaluated at bedside. No major clinical changes. Continuing current plan, work with PT OT. Continue hydration, continue antibiotics. 01/19: No major clinical changes. Still very confused. Patient is somewhat lethar gic today, PT OT ordered. We will need placement. No other changes otherwise. 01/20: Patient seen and examined. Awake and very confused. NPO. Reports he isn't in any pain. Hgb 10.4. Discussed with RN. Chart reviewed. 01/21: Hb 9.7, mg1.2, K3.3. Very weak, confused. NPO. [place]. Daughter, Dorinda, notes he & are chronic heavy alcohol users and he sits and drinks scotch all day. 01/22: Afebrile. Mag 1.8, K3.3. Very weak. Little more alert. Complaining of headache. Requires honey thickened liquids after meeting with speech, starting diet today. Afebrile. NA 132, K3.1 despite replacement. Mg 1.7. Given p.o. and IV replacement. Still very weak and plan on discharging to [facility] for further rehab today. Vitals/I&O Vitals/I&O: Vital Signs Date Time Temp Pulse Resp B/P (MAP) Pulse Ox O2 Delivery O2 Flow Rate FiO2 01/23/21 07:45 Room Air 01/23/21 07:00 97.7 94 18 146/90 (108) 100 97.7 I & O 01/22/21 01/22/21 01/23/21 15:00 23:00 07:00 Intake Total 120 ml Output Total 1150 ml Balance -1150 ml 120 ml Physical Exam General: Alert, Cooperative Heart: Regular rate, Normal S1, Normal S2 Lungs: Clear, Wheezing Abdomen: Normal bowel sounds, Soft, No tenderness Extremities: Other (lower extremity edema) Skin: No rashes, No significant lesion Labs Labs: Laboratory Tests Test 01/22/21 11:18 01/22/21 16:13 01/22/21 20:29 01/23/21 05:35 Glucose (Fingerstick) 177 mg/dL (70-99) 200 mg/dL (70-99) 156 mg/dL (70-99) White Blood Count 8.3 x10^3/uL (4.0-11.0) Red Blood Count 3.20 x10^6/uL (4.30-5.70) Hemoglobin 12.1 g/dL (13.0-17.5) Hematocrit 34.8 % (39.0-53.0) Mean Corpuscular Volume 109 fL (79-100) Mean Corpuscular Hemoglobin 38 pg (25-35) Mean Corpuscular Hemoglobin Concent 35 g/dL (31-37) Red Cell Distribution Width 15.0 % (11.5-14.5) Platelet Count 233 x10^3/uL (140-400) Neutrophils (%) (Auto) 76 % (31-73) Lymphocytes (%) (Auto) 11 % (24-48) Monocytes (%) (Auto) 11 % (0-9) Eosinophils (%) (Auto) 2 % (0-3) Basophils (%) (Auto) 0 % (0-3) Neutrophils # (Auto) 6.3 x10^3/uL (1.8-7.7) Lymphocytes # (Auto) 0.9 x10^3/uL (1.0-4.8) Monocytes # (Auto) 0.9 x10^3/uL (0.0-1.1) Eosinophils # (Auto) 0.2 x10^3/uL (0.0-0.7) Basophils # (Auto) 0.0 x10^3/uL (0.0-0.2) Sodium Level 132 mmol/L (136-145) Potassium Level 3.1 mmol/L (3.5-5.1) Chloride Level 95 mmol/L (98-107) Carbon Dioxide Level 31 mmol/L (21-32) Anion Gap 6 (6-14) Blood Urea Nitrogen 13 mg/dL (8-26) Creatinine 1.0 mg/dL (0.7-1.3) Estimated GFR (Cockcroft-Gault) 72.3 Glucose Level 145 mg/dL (70-99) Calcium Level 8.8 mg/dL (8.5-10.1) Test 01/23/21 07:14 Glucose (Fingerstick) 153 mg/dL (70-99) Assessment and Plan Assessmemt and Plan Problems Medical Problems: (1) Generalized weakness Status: Acute (2) Hypoglycemia Status: Acute (3) Hypokalemia Status: Acute (4) Hypomagnesemia Status: Acute (5) Septic shock Status: Acute Comment Review of Relevant I have reviewed the following items dedrick (where applicable) has been applied. Medications: Current Medications Medications (Trade) Dose Ordered Sig/Senia Route PRN Reason Start Time Stop Time Status Last Admin Dose Admin Potassium Chloride (Klor-Con) 40 meq 1X ONCE PO 01/22/21 11:00 01/22/21 11:05 DC 01/22/21 11:19 Potassium Chloride (Klor-Con) 40 meq 1300 ONCE PO 01/22/21 13:00 01/22/21 13:01 DC 01/22/21 13:17 Magnesium Sulfate/ Dextrose 100 ml @ 100 mls/hr 1X ONCE IV 01/22/21 11:00 01/22/21 11:59 DC 01/22/21 11:34 Justifications for Admission Other Justification SHANNAN LAL MD Jan 23, 2021 08:00
[2021-01-23] MEDS ORDERED: POTASSIUM CHLORIDE 20 MEQ TABLET.ER. PO ONE ×2 (08:30→10:30)
[2021-01-23] MEDS: FOLIC ACID 1 MG TABLET. PO SCH (08:33)
[2021-01-23] MEDS: APIXABAN 5 MG TABLET. PO SCH (08:33)
[2021-01-23] MEDS: MULTIVITAMIN with MINERAL TABLET. PO SCH (08:33)
[2021-01-23] MEDS: VITAMIN B12,B9,B6 COMPLEX 1 TABLET. PO SCH (08:33)
[2021-01-23] MEDS: THIAMINE 100 MG TABLET. PO SCH (08:34)
[2021-01-23] MEDS: LOSARTAN POTASSIUM 50 MG TABLET. PO SCH (08:34)
[2021-01-23] MEDS: ASPIRIN ENTERIC COATED 81 MG TABLET.DR. PO SCH (08:34)
[2021-01-23] MEDS: METOPROLOL SUCC 24HR ER 25 MG TAB.ER.24H. PO SCH (08:34)
[2021-01-23] MEDS: LACTOBACILLUS RHAMNOSUS GG 1 CAPSULE. PO SCH (08:34)
[2021-01-23] MEDS: NYSTATIN TOPICAL POWDER 15GM BOTTLE. TP SCH (09:00)
[2021-01-23 10:51] VITALS: BP 90/62
[2021-01-23] MEDS ORDERED: THIA100T22 PO (10:52)
[2021-01-23] MEDS ORDERED: Folic Acid PO (10:52)
[2021-01-23] MEDS ORDERED: ACET325T21 PO (10:52)
[2021-01-23] MEDS ORDERED: NYST15PO2 TP (10:52)
[2021-01-23] MEDS ORDERED: LOSA-73 PO (10:52)
--- NOTE | 2021-01-23 10:54 | SNU/HH DC ---
DISCHARGE ORDERS DISCHARGE INFORMATION: DISCHARGE DATE: Jan 23, 2021 FINAL DIAGNOSIS Problems Medical Problems: (1) Generalized weakness Status: Acute (2) Hypoglycemia Status: Acute (3) Hypokalemia Status: Acute (4) Hypomagnesemia Status: Acute (5) Septic shock Status: Acute CONDITION ON DISCHARGE: Stable CODE STATUS: Code Status: Full LONG TERM: SNF STAY <30 DAYS: Yes POST DISCHARGE ORDERS: ACTIVITY ORDERS: Activity as tolerated DIET AFTER DISCHARGE: Regular WOUND/INCISION CARE: Other, see below CHECKS AFTER DISCHARGE: CHECKS AFTER DISCHARGE: Check blood press - daily, Check your Temp as needed TREATMENT/EQUIPMENT ORDERS: ADAPTIVE EQUIPMENT NEEDED: Crutches Physical Therapy For: Evalulation/Treatment Occupational Therapy For: Evaluation/Treatment DISCHARGE MEDICATIONS: Home Meds Active Scripts Amoxicillin/Potassium Clav (AMOX TR-K CLV 875-125 MG TAB) 1 Each Tablet, 1 TAB PO BID for Cellulitis for 5 Days, #10 TAB Prov:SHANNAN LAL MD 01/23/21 Nystatin (NYAMYC) 15 Gm Powder, 1 MERLIN TP BID for Intertrigo for 14 Days, #14 MISC Prov:SHANNAN LAL MD 01/23/21 Thiamine Mononitrate (VITAMIN B-1) 100 Mg Tablet, 100 MG PO DAILY for ETOH use disorder for 30 Days, #30 TAB Prov:SHANNAN LAL MD 01/23/21 [Folic Acid] 1 MG TABLET No Conflict Check, 1 MG PO DAILY for ETOH use disorder for 30 Days, #30 Prov:SHANNAN LAL MD 01/23/21 Acetaminophen (ACETAMINOPHEN) 325 Mg Tablet, 650 MG PO PRN Q6HRS PRN for MILD PAIN / TEMP > 100.3'F for 30 Days, #120 TAB Prov:SHANNAN LAL MD 01/23/21 Losartan Potassium (COZAAR ) 50 Mg Tablet, 100 MG PO DAILY for HTN for 30 Days, #60 TAB Prov:SHANNAN LAL MD 01/23/21 Reported Medications Metoprolol Succinate (TOPROL XL) 25 Mg Tab.er.24h, 12.5 MG PO DAILY for FOR HYPERTENSION, #30 TAB 0 Refills 07/13/15 Apixaban (ELIQUIS) 5 Mg Tablet, 5 MG PO BID 3/4/16 Aspirin (ASPIR 81) 81 Mg Tablet.dr, 1 TAB PO DAILY, #30 TAB 5 Refills 10/11/14 Vitamin E Acetate (VITAMIN E) 1,000 Unit Capsule, 1 TAB PO 10/11/14 [place]-3 Fatty Acids (FISH OIL) 500 Mg Capsule, 500 MG PO DAILY 10/11/14 Discontinued Reported Medications Losartan/Hydrochlorothiazide (LOSARTAN-HCTZ 100-25 MG TAB) 1 Each Tablet, 1 EACH PO DAILY, TAB 07/13/15 SHANNAN LAL MD Jan 23, 2021 10:54
[2021-01-23] MEDS ORDERED: AMOX1TAB11 PO (10:59)
[2021-01-23] MEDS ORDERED: MAGNESIUM SULFATE 1GM 100 ML IV ONE (11:30)
--- NOTE | 2021-01-23 11:35 | NUR ---
SW following. Discussed with RN, pt discharging to [facility] today at 1230. Giselle (R) came to collect discharge orders due to fax being down. RN and pt's daughter notified. No further SW needs.
--- NOTE | 2021-01-23 12:45 | NUR ---
Discharge Note: [facility] Discharge instructions and discharge home medications reviewed with Patient and a copy given. All questions have been answered and understanding verbalized. The following instructions and handouts were given: discharge instructions Discontinued lines and drains: Peripheral IV discontinued intact. Patient discharged to Shelter Facility with Transport Personnel via Wheelchair
--- NOTE | 2021-01-23 16:27 | PDOC3 ---
Discharge Summary Visit Information Date of Admission: Jan 17, 2021 Date of Discharge: Jan 23, 2021 Admitting Diagnosis: Acute encephalopathy Final Diagnosis Problems Medical Problems: (1) Generalized weakness Status: Acute (2) Hypoglycemia Status: Acute (3) Hypokalemia Status: Acute (4) Hypomagnesemia Status: Acute (5) Septic shock Status: Acute Brief Hospital Course Allergies Allergies Coded Allergies Type Severity Reaction Last Updated Verified No Known Drug Allergies 07/17/15 No Vital Signs Vital Signs Date Time Temp Pulse Resp B/P (MAP) Pulse Ox O2 Delivery O2 Flow Rate FiO2 01/23/21 10:51 97.7 85 18 90/62 (71) 95 97.7 01/23/21 07:45 Room Air Lab Results Laboratory Tests Test 01/21/21 16:38 01/21/21 19:22 01/22/21 05:55 01/22/21 07:08 Glucose (Fingerstick) 172 mg/dL (70-99) 157 mg/dL (70-99) 182 mg/dL (70-99) White Blood Count 8.3 x10^3/uL (4.0-11.0) Red Blood Count 2.95 x10^6/uL (4.30-5.70) Hemoglobin 11.3 g/dL (13.0-17.5) Hematocrit 32.0 % (39.0-53.0) Mean Corpuscular Volume 108 fL (79-100) Mean Corpuscular Hemoglobin 38 pg (25-35) Mean Corpuscular Hemoglobin Concent 35 g/dL (31-37) Red Cell Distribution Width 14.4 % (11.5-14.5) Platelet Count 195 x10^3/uL (140-400) Neutrophils (%) (Auto) 77 % (31-73) Lymphocytes (%) (Auto) 10 % (24-48) Monocytes (%) (Auto) 10 % (0-9) Eosinophils (%) (Auto) 2 % (0-3) Basophils (%) (Auto) 0 % (0-3) Neutrophils # (Auto) 6.4 x10^3/uL (1.8-7.7) Lymphocytes # (Auto) 0.8 x10^3/uL (1.0-4.8) Monocytes # (Auto) 0.8 x10^3/uL (0.0-1.1) Eosinophils # (Auto) 0.2 x10^3/uL (0.0-0.7) Basophils # (Auto) 0.0 x10^3/uL (0.0-0.2) Sodium Level 131 mmol/L (136-145) Potassium Level 3.0 mmol/L (3.5-5.1) Chloride Level 93 mmol/L (98-107) Carbon Dioxide Level 35 mmol/L (21-32) Anion Gap 3 (6-14) Blood Urea Nitrogen 9 mg/dL (8-26) Creatinine 0.7 mg/dL (0.7-1.3) Estimated GFR (Cockcroft-Gault) 109.1 Glucose Level 157 mg/dL (70-99) Calcium Level 8.8 mg/dL (8.5-10.1) Magnesium Level 1.8 mg/dL (1.8-2.4) Test 01/22/21 11:18 01/22/21 15:10 01/22/21 16:13 01/22/21 20:29 Glucose (Fingerstick) 177 mg/dL (70-99) 200 mg/dL (70-99) 156 mg/dL (70-99) SARS-CoV-2 RNA (LANDRY) Negative (Negative) Test 01/23/21 05:35 01/23/21 07:14 01/23/21 11:50 White Blood Count 8.3 x10^3/uL (4.0-11.0) Red Blood Count 3.20 x10^6/uL (4.30-5.70) Hemoglobin 12.1 g/dL (13.0-17.5) Hematocrit 34.8 % (39.0-53.0) Mean Corpuscular Volume 109 fL (79-100) Mean Corpuscular Hemoglobin 38 pg (25-35) Mean Corpuscular Hemoglobin Concent 35 g/dL (31-37) Red Cell Distribution Width 15.0 % (11.5-14.5) Platelet Count 233 x10^3/uL (140-400) Neutrophils (%) (Auto) 76 % (31-73) Lymphocytes (%) (Auto) 11 % (24-48) Monocytes (%) (Auto) 11 % (0-9) Eosinophils (%) (Auto) 2 % (0-3) Basophils (%) (Auto) 0 % (0-3) Neutrophils # (Auto) 6.3 x10^3/uL (1.8-7.7) Lymphocytes # (Auto) 0.9 x10^3/uL (1.0-4.8) Monocytes # (Auto) 0.9 x10^3/uL (0.0-1.1) Eosinophils # (Auto) 0.2 x10^3/uL (0.0-0.7) Basophils # (Auto) 0.0 x10^3/uL (0.0-0.2) Sodium Level 132 mmol/L (136-145) Potassium Level 3.1 mmol/L (3.5-5.1) Chloride Level 95 mmol/L (98-107) Carbon Dioxide Level 31 mmol/L (21-32) Anion Gap 6 (6-14) Blood Urea Nitrogen 13 mg/dL (8-26) Creatinine 1.0 mg/dL (0.7-1.3) Estimated GFR (Cockcroft-Gault) 72.3 Glucose Level 145 mg/dL (70-99) Calcium Level 8.8 mg/dL (8.5-10.1) Magnesium Level 1.7 mg/dL (1.8-2.4) Glucose (Fingerstick) 153 mg/dL (70-99) 141 mg/dL (70-99) Laboratory Tests Test 01/22/21 20:29 01/23/21 05:35 01/23/21 07:14 01/23/21 11:50 Glucose (Fingerstick) 156 mg/dL (70-99) 153 mg/dL (70-99) 141 mg/dL (70-99) White Blood Count 8.3 x10^3/uL (4.0-11.0) Red Blood Count 3.20 x10^6/uL (4.30-5.70) Hemoglobin 12.1 g/dL (13.0-17.5) Hematocrit 34.8 % (39.0-53.0) Mean Corpuscular Volume 109 fL (79-100) Mean Corpuscular Hemoglobin 38 pg (25-35) Mean Corpuscular Hemoglobin Concent 35 g/dL (31-37) Red Cell Distribution Width 15.0 % (11.5-14.5) Platelet Count 233 x10^3/uL (140-400) Neutrophils (%) (Auto) 76 % (31-73) Lymphocytes (%) (Auto) 11 % (24-48) Monocytes (%) (Auto) 11 % (0-9) Eosinophils (%) (Auto) 2 % (0-3) Basophils (%) (Auto) 0 % (0-3) Neutrophils # (Auto) 6.3 x10^3/uL (1.8-7.7) Lymphocytes # (Auto) 0.9 x10^3/uL (1.0-4.8) Monocytes # (Auto) 0.9 x10^3/uL (0.0-1.1) Eosinophils # (Auto) 0.2 x10^3/uL (0.0-0.7) Basophils # (Auto) 0.0 x10^3/uL (0.0-0.2) Sodium Level 132 mmol/L (136-145) Potassium Level 3.1 mmol/L (3.5-5.1) Chloride Level 95 mmol/L (98-107) Carbon Dioxide Level 31 mmol/L (21-32) Anion Gap 6 (6-14) Blood Urea Nitrogen 13 mg/dL (8-26) Creatinine 1.0 mg/dL (0.7-1.3) Estimated GFR (Cockcroft-Gault) 72.3 Glucose Level 145 mg/dL (70-99) Calcium Level 8.8 mg/dL (8.5-10.1) Magnesium Level 1.7 mg/dL (1.8-2.4) Brief Hospital Course Mr Gould is a 80-year-old male who presented to the hospital due to 2-week history of bilateral lower extremity weakness and nausea and vomiting. Patient reports he has had progressive weakness in his lower extremities to the point where he is unable to even stand up now. Feels very weak all over. Cannot recall any episodes like this before. He also has developed in the past week nausea and vomiting with meals. Decreased p.o. intake because of this. In the emergency room patient met SIRS criteria particularly due to lactate of 5. Patient does not know of any Covid contacts he knows of, he does have his Covid vaccines. Infectious work-up unremarkable thus far however patient has not been able to provide a urine sample thus suspect is a UTI. Denies hematuria and dysuria. Says that for the past few weeks when he has to urinate in the middle of the night he is too weak to get up to get to the bathroom so he just pees himself. Patient is a pretty heavy alcoholic, 3-4 scotches a night. When seen patient was denying headache, vision changes, chest pain, dysuria. Of note patient reports that about 1 year ago he had an episode of MS-like symptoms that are somewhat similar to this. Says they went away on their own thus he never pursued any sort of work-up. 01/18: Evaluated at bedside. No major clinical changes. Continuing current plan, work with PT OT. Continue hydration, continue antibiotics. 01/19: No major clinical changes. Still very confused. Patient is somewhat lethargic today, PT OT ordered. We will need placement. No other changes otherwise. 01/20: Patient seen and examined. Awake and very confused. NPO. Reports he isn't in any pain. Hgb 10.4. Discussed with RN. Chart reviewed. 01/21: Hb 9.7, mg1.2, K3.3. Very weak, confused. NPO. [place]. Daughter, Dorinda, notes he & are chronic heavy alcohol users and he sits and drinks scotch all day. 01/22: Afebrile. Mag 1.8, K3.3. Very weak. Little more alert. Complaining of headache. Requires honey thickened liquids after meeting with speech, starting diet today. Afebrile. NA 132, K3.1 despite replacement. Mg 1.7. Given p.o. and IV replacement. Still very weak and plan on discharging to long-term for f urther rehab today. Overall treated for alcohol withdrawal delirium and electrolyte disturbances related to this. Should stop his diuretic can cut back on alcohol. Due to his extreme deconditioning and poor self-care he will need several weeks of long-term. We will continue on Augmentin for his cellulitis of his feet for the next 5 days. Problem list: Acute encephalopathy - alcohol withdrawal with delerium, improved after 5 days Generalized weakness Alcohol use disorder Failure to thrive Septic shock Right 2nd toe wound - treating as cellulitis Left leg blistering - treating as cellulitis Hypertension A. fib Macrocytic anemia Severe Malnutrition Hypokalemia Hypomagnesemia History of multiple sclerosis? - daughter notes remote diagnosis - mostly af fected his hands Greater than 30 minutes spent on d/c to SNF Discharge Information Condition at Discharge: Improved Follow Up: Weeks (1) Disposition/Orders: D/C to Another Facility Scheduled Amoxicillin/Potassium Clav (Amox Tr-K Clv 875-125 Mg Tab) 1 Each Tablet, 1 TAB PO BID for Cellulitis for 5 Days, #10 Prescribed by: SHANNAN LAL MD on 01/23/21 1059 Apixaban (Eliquis) 5 Mg Tablet, 5 MG PO BID, (Reported) Entered as Reported by: VIANEY LOWERY on 07/13/15 1241 Last Action: Continued on 01/17/21 1440 by SHANNAN MACHADO MD Aspirin (Aspir 81) 81 Mg Tablet.dr, 1 TAB PO DAILY, #30 Ref 5 (Reported) Entered as Reported by: RAYNA ZEE on 10/11/14 1331 Last Action: Continued on 01/17/21 141 by SHANNAN MACHADO MD Losartan Potassium (Cozaar ) 50 Mg Tablet, 100 MG PO DAILY for HTN for 30 D ays, #60 Prescribed by: SHANNAN LAL MD on 01/23/21 1052 Metoprolol Succinate (Toprol Xl) 25 Mg Tab.er.24h, 12.5 MG PO DAILY for FOR HYPERTENSION, #30 Ref 0 (Reported) Entered as Reported by: VIANEY LOWERY on 07/13/15 1246 Last Action: Continued on 01/17/21 141 by SHANNAN MACHADO MD Nystatin ([facility]) 15 Gm Powder, 1 MERLIN TP BID for Intertrigo for 14 Days, #14 Prescribed by: SHANNAN LAL MD on 01/23/21 1052 [place]-3 Fatty Acids (Fish Oil) 500 Mg Capsule, 500 MG PO DAILY, (Reported) Entered as Reported by: RAYNA ZEE on 10/11/14 1329 Last Action: HELD on 01/17/21 141 by SHANNAN MACHADO MD Thiamine Mononitrate (Vitamin B-1) 100 Mg Tablet, 100 MG PO DAILY for ETOH use disorder for 30 Days, #30 Prescribed by: SHANNAN LAL MD on 01/23/21 1052 [Folic Acid] 1 MG TABLET, 1 MG PO DAILY for ETOH use disorder for 30 Days, #30 Prescribed by: SHANNAN LAL MD on 01/23/21 1052 Scheduled PRN Acetaminophen (Acetaminophen) 325 Mg Tablet, 650 MG PO PRN Q6HRS PRN for MILD PAIN / TEMP > 100.3'F for 30 Days, #120 Prescribed by: SHANNAN LAL MD on 01/23/21 1052 Miscellaneous Medications Vitamin E Acetate (Vitamin E) 1,000 Unit Capsule, 1 TAB PO, (Reported) Entered as Reported by: RAYNA ZEE on 10/11/14 1330 Last Action: HELD on 01/17/211410 by SHANNAN MACHADO MD Discontinued Medications Losartan/Hydrochlorothiazide (Losartan-Hctz 100-25 Mg Tab) 1 Each Tablet, 1 EACH PO DAILY, (Reported) Entered as Reported by: VIANEY LOWERY on 07/13/15 1246 Last Action: Converted on 01/17/211410 by SHANNAN MACHADO MD Justicifation of Admission Dx: Justifications for Admission: Justification of Admission Dx: Yes SHANNAN LAL MD Jan 23, 2021 16:27
== END 2021-01-23 12:45 | DRG 871 ==
LOC: ER 11:48 → 5 NORTH 14:15
PROVIDERS: ADMIT Student in an Organized Health Care Education/Training Program; ATTEND Student in an Organized Health Care Education/Training Program
DX: A41.9 Sepsis, unspecified organism (principal); E43 Unspecified severe protein-calorie malnutrition; R65.21 Severe sepsis with septic shock; N39.0 Urinary tract infection, site not specified; F10.231 Alcohol dependence with withdrawal delirium; G93.40 Encephalopathy, unspecified; L03.116 Cellulitis of left lower limb; D53.9 Nutritional anemia, unspecified; E16.2 Hypoglycemia, unspecified; E83.42 Hypomagnesemia; E87.6 Hypokalemia; I10 Essential (primary) hypertension; I48.91 Unspecified atrial fibrillation; I73.9 Peripheral vascular disease, unspecified; R62.7 Adult failure to thrive; Z20.822 Contact with and (suspected) exposure to COVID-19; L03.031 Cellulitis of right toe; G35 Multiple sclerosis
CPT/HCPCS: 36415; 70450; 71045; 80048; 80053; 81001; 82140; 82553; 82607; 82962; 83605; 83735; 83880; 84132; 84484; 85007; 85025; 85610; 85730; 87040; 87426; 93005; 93971; 96365; 96367; 96375; G0480; J0696; J2405; J3411; J3475; J3490; J7030; J7040; U0003; U0005; 92526-GN; 92610-GN; 97110-GP; 97165-GO; 97530-GP; 97535-GO; 99291-25; G0378

== ENCOUNTER → 2021-02-15 | Outpatient (CLI) | payer MEDICARE ==
[2021-01-23 10:51] VITALS: BP 90/62
[~2021-02-15] MED LIST changes: +ACET325T21 PO; +AMOX1TAB11 PO; +Folic Acid PO; +LOSA-73 PO; +NYST15PO2 TP; +THIA100T22 PO
--- NOTE | 2021-02-15 13:10 | RAD ---
EXAM: Brain MRI without contrast. HISTORY: Weakness. Muscle spasms. TECHNIQUE: Multiplanar, multisequence magnetic resonance imaging of the brain was performed without c ontrast. COMPARISON: CT dated 01/17/2021. FINDINGS: The exam is limited due to significant motion. There is no restricted diffusion to suggest acute or subacute infarction. There is no susceptibility effect to suggest hemorrhage. There is no ma ss effect or midline shift. There is no hydrocephalus. There is ventricular enlargement due to cerebral atrophy. There is extensive signal change within the cerebral white matter, most commonly due to chronic small vessel disease in patients of this age. Th ere are suspected chronic lacunar infarct at the junctions of the bilateral thalami and basal ganglia . The orbits are unremarkable. There are tiny maxillary sinus mucous retention cysts. There is fluid wi thin the left mastoid air cells. There are normal flow voids within the cerebral vessels. There is no suspicious calvarial lesion. IMPRESSION: 1. Limited exam due to motion. 2. Extensive cerebral white matter changes, most commonly due to chronic small vessel disease. This i s advanced for patient age. 3. Cerebral atrophy. This is also advanced for patient age. 4. 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 5. Left mastoid fluid. Electronically signed by: Lydia Martinez MD (02/15/2021 1:07 PM) [id number]
== END ==
LOC: MRI 14:52
PROVIDERS: ATTEND Nurse Practitioner Gerontology
DX: G31.9 Degenerative disease of nervous system, unspecified (principal); M62.81 Muscle weakness (generalized); I73.9 Peripheral vascular disease, unspecified; I51.7 Cardiomegaly
CPT/HCPCS: 70551